=== PATIENT | male | born 1955 | race Caucasian/White ===

== ENCOUNTER 2020-08-28 10:06 | Observation (INO) | payer MEDICARE, SELFPAY ==
[2020-08-28] VITALS (52 sets, daily range): BP systolic 105–137; BP diastolic 67–110; PULSE 63–95; RESP 9–20; TEMP 36.3–37.1; O2SAT 94–100; BMI 25.0
--- NOTE | 2020-08-28 | ECHO_ITS ---
Patient Info Name: Josh Bucio Age: 65 years : 1955 Gender: Male Ht: 72 in Wt: 194 lbs BSA: 2.13 m2 HR: 63 bpm BP: 111 / 78 mmHg Technical Quality: Fair Exam Date: 08/28/2020 3:53 PM Exam Location: [facility] Exam Room: ER Patient Status: Outpatient Admit Date: 08/28/2020 Staff Ordering Physician: Ja Alonzo MD Reverberatory Furnace Operator: Viktoriya Wilson RDCS Attending Provider: Sara Aldana MD Exam Type: CA echo doppler color flow Study Info Indications - CHEST PAIN CAD S/P CABG Complete two-dimensional, color flow and Doppler transthoracic echocardiogram is performed. Summary 1. Complete two-dimensional, color flow and Doppler transthoracic echocardiogram is performed. 2. Left ventricular systolic function is normal, estimated at 60-65%. 3. There is mildly increased left ventricular wall thickness. 4. There is mild aortic valve regurgitation. Left Ventricle Left ventricular chamber dimension is normal. Left ventricular systolic function is normal, estimated at 60-65%. There is mildly increased left ventricular wall thickness. Left ventricular septal wall motion is abnormal with septal motion related to a post-operative state. The left ventricular diastolic function is normal. Right Ventricle Right ventricular chamber dimension is normal. Right ventricular systolic function is normal. Left Atria Left atrial chamber dimension is normal. Right Atria Right atrial chamber dimension is normal. Aortic Valve The aortic valve is trileaflet. There is no aortic valve sclerosis. There is no aortic valve stenosis. There is mild aortic valve regurgitation. Pulmonic Valve The pulmonic valve is normal. There is no pulmonic valve stenosis. There is no pulmonic regurgitation. Mitral Valve The mitral valve has normal leaflets. There is no mitral valve stenosis. There is trace mitral valve regurgitation. Tricuspid Valve The tricuspid valve leaflets are normal. There is no significant tricuspid valve stenosis. There is trace tricuspid valve regurgitation. No pulmonary hypertension, estimated pulmonary arterial systolic pressure is 28 mmHg. Pericardium/Pleural The pericardium appears normal. There is no pericardial effusion. Inferior Vena Cava Normal inferior vena cava with >50% collapse upon inspiration consistent with normal right atrial pressure, 10 mmHg. Aorta The aortic root size at the sinus of Valsalva is normal. The prox ascending aorta size is normal. Left Ventricular Outflow Tract Name Value Normal LVOT 2D LVOT Diameter 2.0 cm LVOT Doppler LVOT Peak Gradient 4 mmHg LVOT Mean Gradient 2 mmHg LVOT VTI 20 cm LVOT VTI/AV VTI Ratio 1.0 LVOT Stroke Volume 64 ml LVOT CO 12.8 l/min LVOT CI 6.0 l/min/m2 Pulmonic Valve Name Value
--- NOTE | ~2020-08-28 | US_ITS ---
EXAMINATION: US right upper quadrant DATE: 08/29/2020 08:33 INDICATION: Abdominal pain. TECHNIQUE: Multiple grayscale and Doppler ultrasound images of the abdomen were obtained. COMPARISON: CT abdomen and pelvis 06/06/2017 FINDINGS: The visualized portions of the head and body of the pancreas are normal. There is diffuse h epatic steatosis. There is normal flow in main portal vein. The gallbladder is normal in size and con tains a gallstone. No gallbladder wall thickening or sonographic Medrano sign. The common duct is norm al and measures 3 mm. IMPRESSION: 1. Cholelithiasis. No evidence of acute cholecystitis. 2. Diffuse hepatic steatosis. Reviewed, dictated and finalized at location B. BOARD INSERTER
--- NOTE | ~2020-08-28 | CT_ITS ---
EXAMINATION: CT cervical spine wo con DATE: 08/29/2020 08:44 INDICATION: Neck pain. TECHNIQUE: Computed tomography (CT) of the cervical spine was performed without intravenous contrast. Automated exposure control and iterative reconstruction technique were employed. The dose-length pro duct was 391.47 mGy-cm. COMPARISON: None FINDINGS: There is 2 mm anterolisthesis of C4 on C5. Vertebral body heights are normal. There is mode rately decreased disc height at C3-C4, mildly decreased disc height at C4-C5, and moderately decrease d disc height at C5-C6 and C6-C7. The following disc levels are specifically discussed: C2-C3: There is mild left uncovertebral joint osteoarthritis. There is mild bilateral facet joint ost eoarthritis. There is mild left neural foraminal stenosis. There is no central canal stenosis. C3-C4: There is severe bilateral uncovertebral joint osteoarthritis. There is mild bilateral facet gretta int osteoarthritis. There is mild right and moderate left neural foraminal stenosis. There is mild ce ntral canal stenosis. C4-C5: There is no uncovertebral joint osteoarthritis. There is mild right and severe left facet join t osteoarthritis. There is mild left neural foraminal stenosis. There is no central canal stenosis. C5-C6: There is severe bilateral uncovertebral joint osteoarthritis. There is mild bilateral facet gretta int osteoarthritis. There is mild bilateral neural foraminal stenosis. There is mild central canal st enosis. C6-C7: There is moderate and moderate left uncovertebral joint osteoarthritis. There is severe right and moderate left facet joint osteoarthritis. There is mild left neural foraminal stenosis. There is mild central canal stenosis. C7-T1: There is no uncovertebral joint osteoarthritis. There is mild right and moderate left facet gretta int osteoarthritis. There is mild left neural foraminal stenosis. There is no central canal stenosis. IMPRESSION: 1. Moderate cervical spondylosis. Reviewed, dictated and finalized at location B. ODONTIST VICE PRESIDENT
--- NOTE | ~2020-08-28 | XR_ITS ---
EXAMINATION: XR chest 2V DATE: 08/28/2020 10:53 INDICATION: Chest pain. TECHNIQUE: Frontal and lateral views of the chest were obtained. COMPARISON: Chest 2 views 04/05/2016, CT abdomen and pelvis 06/06/2017 FINDINGS: There is mild atelectasis in the lower lung zones. No pleural effusion or pneumothorax. The heart size is normal. Median sternotomy wires and mediastinal surgical clips are seen, likely from p rior coronary artery bypass grafting. IMPRESSION: 1. Mild atelectasis in the lower lung zones. Reviewed, dictated and finalized at location B. FIXTURE ASSEMBLER
--- NOTE | 2020-08-28 10:12 | ECG_ITS ---
Measurements Intervals [place] Rate: 65 P: 48 ND: 141 QRS: 14 QRSD: 96 T: 28 QT: 397 QTc: 415 Interpretive Statements SINUS RHYTHM NORMAL ECG Electronically Signed On 08-28-2020 13:43:38 [employer] GEN[employer] RESEARCHER by Jose Luis Neville D.O.
--- NOTE | 2020-08-28 10:22 | ED.CHESTPAIN ---
HPI - Chest Pain General Chief Complaint: Chest Pain Stated Complaint: CP Time Seen by Provider: 08/28/20 10:13 Source: patient Mode of arrival: ambulatory Limitations: no limitations History of Present Illness HPI narrative: Patient 65-year-old male complaining of chest pain, midsternal, pressure, 6 out of 10, radiating to his neck x2 weeks. Patient states that he seen his doctor for this chest pain and was told that everything checked out okay states that he is still having pain. Patient had CABG back in December. Related Data Home Medications Medication Instructions Recorded Confirmed amlodipine 2.5 mg PO 08/28/20 aspirin [Adult Aspirin] 81 mg PO DAILY 08/28/20 atorvastatin 80 mg PO 08/28/20 clopidogrel 75 mg PO 08/28/20 furosemide 20 mg PO 08/28/20 metoprolol succinate 50 mg PO 08/28/20 potassium chloride 10 meq PO 08/28/20 Allergies Allergy/AdvReac Type Severity Reaction Status Date / Time No Known Allergies Allergy Verified 08/28/20 10:21 Review of Systems Review of Systems: All systems reviewed & are unremarkable except as noted in HPI and below Constitutional: Constitutional: Denies body ache(s), Denies chills, Denies excessive sweating, Denies fatigue, Denies fever(s), Denies headache(s), Denies lethargy, Denies malaise, Denies weakness and Denies weight loss Eyes: Eyes: Denies blurry vision, Denies change in vision and Denies loss of vision ENT: Denies dizziness, Denies ear discharge, Denies headache(s), Denies lip swelling, Denies epistaxis, Denies nasal congestion, Denies neck pain, Denies throat swelling and Denies tongue swelling Cardiovascular: Cardiovascular: Denies diaphoresis, Denies rapid heart rate, Denies edema, Denies irregular heart rhythm, Denies lightheadedness, Denies palpitations, Denies dyspnea and Denies dyspnea on exertion Respiratory: Respiratory: Denies chest congestion, Denies cough, Denies hemoptysis, Denies dyspnea and Denies dyspnea on exertion Gastrointestinal: Gastrointestinal: Denies abdominal pain, Denies melena, Denies hematochezia, Denies diarrhea, Denies nausea, Denies vomiting and Denies hematemesis Musculoskeletal: Musculoskeletal: Denies abnormal gait, Denies deformity, Denies joint swelling, Denies limited range of motion, Denies neck pain and Denies numbness Neurologic: Denies Abnormal speech present, Denies abnormal gait, Denies confusion, Denies dizziness, Denies headache(s), Denies focal weakness, Denies loss of vision, Denies numbness, Denies Other visual disturbances, Denies Sensory deficit (Neuro) and Denies weakness Psychiatric: Psychiatric: Denies confusion, Denies depression, Denies auditory hallucinations, Denies homicidal ideation and Denies suicidal ideation Endocrine: Endocrine: Denies cold intolerance, Denies excessive sweating, Denies fatigue, Denies heat intolerance and Denies palpitations Hematologic/Lymphatic: Hematologic/Lymphatic: Denies easy bleeding and Denies easy bruising Allergic/Immunologic: Allergic/Immunologic: Denies lip swelling, Denies throat swelling and Denies tongue swelling PMFSH Social History Social History Gender identity (if verbalized by the patient): Male Exam Const: General: cooperative, healthy appearing, comfortable, no acute distress, well developed, alert and awake; No confusion Orientation/consciousness: oriented to person, oriented to place, oriented to time, patient oriented x3 and No confusion Limitations: no limitations HENMT: Head: normal to inspection, normocephalic and atraumatic Ears: hearing grossly normal bilaterally, TM normal on the right and TM normal on the left General nose exam: Normal external nose present, Normal nares present and No nasal discharge present Face and sinus: normal facial exam Mouth: Yes Normal oral and palatal mucosa present, Yes lip normal, Yes tongue normal and Yes oropharynx normal Throat: posterior oropharynx normal, tonsils normal and uvula midline Eyes: General: jeremy
[2020-08-28] MEDS: NITROGLYCERIN OINTMENT 1 INCH DOSE TRANSDERM (10:37)
[2020-08-28] MEDS: ASPIRIN 81 MG CHEWABLE TABLET 324 MG PO (10:38)
[2020-08-28 11:08] LABS: Basophils Percent Auto 0.4 % (0.2-1.2); Eosinophils Absolute Auto 0.3 K/mm3 (0-0.3); Eosinophils Percent Auto 3.6 % (0-4.4); Hematocrit 42.8 % (42.0-52.0); Hemoglobin 15.2 g/dL (14.0-18.0); Immature Granulocyte Absolute 0.02 K/mm3 (0.00-0.031); Immature Granulocyte Percent A 0.3 % (0-0.5); Lymphocytes Absolute Auto 2.43 K/mm3 (0.9-3.2); Lymphocytes Percent Auto 31.1 % (18.3-44.2); Mean Corpuscular HGB Conc 35.5 g/dl (32-36); Mean Corpuscular Hemoglobin 31.3 pg (26-34); Mean Corpuscular Volume 88.1 fl (80-100); Mean Platelet Volume 9.1 fl (7.4-10.4); Monocytes Absolute Auto 0.8 K/mm3 (0.1-0.6); Monocytes Percent Auto 9.7 % (2.6-8.5); Neutrophils Absolute Auto 4.3 K/mm3 (1.3-6.7); Neutrophils Percent Auto 54.9 % (45.5-73.1); Platelet Count Result 283 k/mm3 (150-375); Red Blood Count 4.86 M/mm3 (4.6-6.20); Red Cell Distribution Width 13.4 % (11.5-14.5); White Blood Count 7.8 K/mm3 (4.5-10.0)
[2020-08-28 11:17] LABS: Prothrombin Time 14.1 Seconds (11.1-14.7)
[2020-08-28 11:18] LABS: Partial Thromboplastin Time 35.1 SECONDS (22.3-36.8)
[2020-08-28 11:20] LABS: Anion Gap 11 mmol/L (8-16); Blood Urea Nitrogen 16 mg/dL (9-20); Calcium 9.2 mg/dL (8.4-10.2); Carbon Dioxide 23 mmol/L (22-30); Chloride 107 mmol/L (98-107); Estimated CRCL calculation 70 ml/min; Estimated Glomerular Filt Rate > 60; Glucose 113 mg/dL (75-110); Potassium 3.5 mmol/L (3.4-5.0); Sodium 141 mmol/L (137-145)
[2020-08-28 11:31] LABS: Troponin I < 0.012 ng/mL (0.000-0.034)
[2020-08-28 14:01] LABS: Troponin I < 0.012 ng/mL (0.000-0.034)
[2020-08-28 15:20] LABS: Cholesterol 91 mg/dL (0-200); HDL Direct 33 mg/dL; Triglycerides 105 mg/dL (<150)
[2020-08-28 15:31] LABS: LDL Cholesterol Direct 35 mg/dL
--- NOTE | 2020-08-28 16:42 | ADMGEN ---
This patient, Josh Bucio, was admitted to IMU Room 205-02 at 1635 on 08/28/2020. Patient/family oriented to hospital policies and general routines including ID bracelet, bed and alarms, visiting hours, pain management, procedures, bathroom and other care routines, personal items, smoking policy, room service/diet, and visiting hours. Information on how to activate the Rapid Response Team has been discussed. Patient/Family are encouraged to report perceived risks to care and to ask questions if they do not understand what they are told or what they should do.
--- NOTE | 2020-08-28 16:55 | NBADM ---
This patient Josh Bucio was born on [birth year] at 15:04. Apgars / .
--- NOTE | 2020-08-28 16:55 | PC.NURSE ---
This patient, Josh Bucio, was admitted to IMU Room 205-02. Patient/family oriented to hospital policies and general routines including ID bracelet, bed and alarms, visiting hours, pain management, procedures, bathroom and other care routines, personal items, smoking policy, room service/diet, and visiting hours. Information on how to activate the Rapid Response Team has been discussed. Patient/Family are encouraged to report perceived risks to care and to ask questions if they do not understand what they are told or what they should do.
[2020-08-28 17:44] LABS: Troponin I < 0.012 ng/mL (0.000-0.034)
--- NOTE | 2020-08-28 20:02 | PM.IMHP ---
H&P: HPI History of Present Illness Date/Time: 08/28/20 20:02 Chief complaint: Chest Pain Narrative: Josh Bucio is a 65 year old male who has a history of coronary artery disease with 5 vessel CABG. The patient was having some chest pain back in December in which grandson the hospital patient was given a choice of having surgery there are being sent to [facility]. The patient went to [facility] and received to 5 vessel CABG in December. The patient is complaining of some tenderness at his surgical site. The patient also stated that he is complaining of right neck pain just around the occipital area on the base of skull. The patient stated that he has some right teeth and he went to the dentist with complaints of this jaw and neck/ pain and they prescribed him some antibiotics sounds like amoxicillin. That did not relieve the discomfort. The patient stated he just took his routine medications and nothing else. The patient tells me that he does not have any maintenance mechanic 2nd shift. The thoracic surgeon thumb that he did now after return. He recovered well from his open heart surgery but does not have a maintenance mechanic 2nd shift. Today the patient came into the emergency room complaining of some chest pain that radiated to his neck. He does have a history of having gallstones and he states that he probably needs to have his gallbladder removed soon. Patient's troponins have been negative so far. His white count is normal and when I looked in his mouth he has no signs and symptoms of infection in his mouth. Patient's troponins are negative and it is very doubtful that the patient is having acute coronary syndrome. The patient had a 5 vessel CABG back in December. He states that he continues with his Plavix and aspirin as prescribed. Sinus rhythm. Cardiology was consulted. The patient was given nitro and aspirin in the emergency room. The patient is admitted to IMU for observation due to service 08/28/2020 Review of Systems Review of Systems: All systems reviewed & are unremarkable except as noted in HPI and below Constitutional: Constitutional: Reports as per HPI and Reports no additional constitutional complaints Eyes: Eyes: Reports as per HPI and Reports no additional eye complaints ENT: Reports system reviewed and no additional complaints, except as documented and Reports Normal hearing present Cardiovascular: Cardiovascular: Reports no additional cardiovascular complaints Respiratory: Respiratory: Reports no additional respiratory complaints and Reports no additional respiratory complaints Gastrointestinal: Gastrointestinal: Reports as per HPI and Reports no additional gastrointestinal complaints Musculoskeletal: Musculoskeletal: Reports no additional musculoskeletal complaints Integumentary/Breasts: Skin/Breast: Reports system reviewed and no additional complaints, except as docu and Reports as per HPI Neurologic: Reports system reviewed and no additional complaints, except as documented, Reports as per HPI and Reports Normal hearing present Psychiatric: Psychiatric: Reports no additional psychiatric complaints and Reports as per HPI Endocrine: Endocrine: Reports no additional endocrine complaints Hematologic/Lymphatic: Hematologic/Lymphatic: Reports no additional hematologic/lymphatic complaints Allergic/Immunologic: Allergic/Immunologic: Reports no additional allergic/immunologic complaints [facility] Past Medical History Medical History (Updated 08/28/20 @ 20:12 by Kenia Rhodes NP) Hyperlipidemia Hypertension Nephrolithiasis With lithotripsy Surgical History Surgical History (Updated 08/28/20 @ 20:12 by Kenia Rhodes NP) S/P CABG x 5 Family History Family History (Updated 08/28/20 @ 20:13 by Kenia Rhodes NP) Mother Heart disease Aspiration pneumonia Father Heart disease Social History Social History (Updated 08/28/20 @ 20:14 by Kenia Rhodes NP) Social History: The patient lives with his and has 4 children. His
[2020-08-28 20:31] LABS: Glucose Point of Care 164 (65-105)
--- NOTE | 2020-08-28 21:50 | PC.NURSE ---
This patient, Josh Bucio, was transferred to [ ] on 08/28/20 at 2150. Personal belongings sent with patient. Report given to [ ]. Appropriate documentation sent with patient. Gave report to Asael VILLAREAL. Moved Approx [id number]
[2020-08-29] VITALS: PULSE 78
[2020-08-29 04:00] VITALS: BP 101/59; PULSE 73; PULSE 76; RESP 18; TEMP 36.7; O2SAT 97
[2020-08-29 06:41] LABS: Basophils Percent Auto 0.2 % (0.2-1.2); Eosinophils Absolute Auto 0.2 K/mm3 (0-0.3); Eosinophils Percent Auto 2.8 % (0-4.4); Hematocrit 41.8 % (42.0-52.0); Immature Granulocyte Absolute 0.03 K/mm3 (0.00-0.031); Immature Granulocyte Percent A 0.4 % (0-0.5); Lymphocytes Absolute Auto 2.64 K/mm3 (0.9-3.2); Lymphocytes Percent Auto 31.8 % (18.3-44.2); Mean Corpuscular HGB Conc 33.5 g/dl (32-36); Mean Corpuscular Hemoglobin 30.2 pg (26-34); Mean Corpuscular Volume 90.1 fl (80-100); Mean Platelet Volume 9.3 fl (7.4-10.4); Monocytes Absolute Auto 0.8 K/mm3 (0.1-0.6); Monocytes Percent Auto 10.1 % (2.6-8.5); Neutrophils Absolute Auto 4.5 K/mm3 (1.3-6.7); Neutrophils Percent Auto 54.7 % (45.5-73.1); Platelet Count Result 266 k/mm3 (150-375); Red Blood Count 4.64 M/mm3 (4.6-6.20); Red Cell Distribution Width 13.5 % (11.5-14.5); White Blood Count 8.3 K/mm3 (4.5-10.0)
[2020-08-29 07:52] LABS: Alanine Aminotransferase 20 U/L (4-50); Albumin Level 3.5 g/dL (3.5-5.1); Alkaline Phosphatase 77 U/L (38-126); Anion Gap 7 mmol/L (8-16); Aspartate Amino Transferase 22 U/L (17-59); Bilirubin,Total 1.2 mg/dL (0.2-1.3); Blood Urea Nitrogen 18 mg/dL (9-20); CRP 0.8 mg/dL (<1.0); Calcium 8.6 mg/dL (8.4-10.2); Carbon Dioxide 27 mmol/L (22-30); Chloride 106 mmol/L (98-107); Estimated CRCL calculation 59 ml/min; Estimated Glomerular Filt Rate 60; Glucose 110 mg/dL (75-110); Magnesium 2.4 mg/dL (1.6-2.3); Potassium 3.8 mmol/L (3.4-5.0); Sodium 140 mmol/L (137-145)
[2020-08-29 08:00] VITALS: PULSE 73
[2020-08-29 08:58] VITALS: PULSE 78
[2020-08-29] MEDS: ATORVASTATIN 40 MG TABLET 80 MG PO (08:58)
[2020-08-29] MEDS: amLODIPine BESYLATE 2.5 MG TABLET PO (08:58)
[2020-08-29] MEDS: CLOPIDOGREL BISULFATE 75 MG TABLET PO (08:58)
[2020-08-29] MEDS: ASPIRIN 81 MG CHEWABLE TABLET PO (08:58)
[2020-08-29] MEDS: METOPROLOL SUCCINATE EXT REL 50 MG TABCR PO (08:58)
[2020-08-29] MEDS: FUROSEMIDE 20 MG TABLET PO (08:58)
[2020-08-29] MEDS: POTASSIUM CHLORIDE 10 MEQ TABLET.ER PO (08:59)
--- NOTE | 2020-08-29 10:35 | PM.CNCAR ---
Assessment and Plan Assessment and plan (1) Chest pain: Qualifiers: Chest pain type: unspecified Qualified Code(s): R07.9 - Chest pain, unspecified Code(s): R07.9 - Chest pain, unspecified Status: Acute Assessment and Plan: 45 y/o with h/o HTN, CAD s/p CABG X5 in February of 2020 who presents with neck pain/spasm He has residual incisional chest pain that has been gradually getting better since surgery EKG and trop are normal No need for any further inpatient cardiac work up He has never followed up with cardiology since his surgery in February. Will arrange for follow up with Dr Alonzo in [place] office (2) CAD (coronary artery disease): Code(s): I25.10 - Atherosclerotic heart disease of [place] coronary artery without angina pectoris Status: Acute Assessment and Plan: Stable Continue ASA Not sure why on Plavix. Need records from [facility]. (3) Hypertension: Code(s): I10 - Essential (primary) hypertension Status: Chronic Assessment and Plan: well controlled (4) Hyperlipidemia: Code(s): E78.5 - Hyperlipidemia, unspecified Status: Chronic Assessment and Plan: LDL 35. History of Present Illness History of Present Illness Consult date/time: 08/29/20 10:35 65 y/o male with h/o HTN, CAD who presented with neck pain He was admitted in February of this year to local hospital with chest pain and was found to have 3 vessel disease for which he was transferred to [facility] and underwent CABG X5. Since then he recovered well except for residual incisional pain. He never followed up with cardiology since surgery but has been following with his PCP and has been taking his meds. He presented yesterday with spams in his neck.Given his cardiac history he was admitted for monitoring. He denies any change in incisional chest pain. It is sharp and hurts with palpation. He denies dyspnea, nausea, fever/chills, dizziness or syncope. He has teeth issues and scheduled for extraction in 2 weeks. His EKG shows normal sinus rhythm. His troponin in negative X3. He is chest pain free now. He continues to have on and off spasm of the back of his neck He quit smoking 40+ years ago Reason For Visit: Chest Pain Review of Systems Review of Systems: All systems reviewed & are unremarkable except as noted in HPI and below Constitutional: Constitutional: Denies fatigue and Denies headache(s) Eyes: Eyes: Denies blurry vision ENT: Reports Normal hearing present and Denies headache(s) Cardiovascular: Cardiovascular: Denies chest pain, Denies diaphoresis, Denies pedal edema, Denies leg edema, Denies lightheadedness, Denies palpitations and Denies dyspnea Respiratory: Respiratory: Denies cough and Denies dyspnea Gastrointestinal: Gastrointestinal: Denies abdominal pain Musculoskeletal: Musculoskeletal: Denies back pain Neurologic: Reports Normal hearing present and Denies headache(s) Psychiatric: Psychiatric: Denies anxiety Endocrine: Endocrine: Denies fatigue and Denies palpitations [facility] Past Medical History Medical History (Updated 08/28/20 @ 20:12 by Kenia Rhodes NP) Hyperlipidemia Hypertension Nephrolithiasis With lithotripsy Surgical History Surgical History (Updated 08/28/20 @ 20:12 by Kenia Rhodes NP) S/P CABG x 5 Family History Family History (Updated 08/28/20 @ 20:13 by Kenia Rhodes NP) Mother Heart disease Aspiration pneumonia Father Heart disease Social History Social History (Updated 08/28/20 @ 20:14 by Kenia Rhodes NP) Social History: The patient lives with his and has 4 children. 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 The patient said that when he was the young man he was a hip be in use various drugs but not since then. He used to smoke cigarettes before he his . 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 No alcohol marijuana or illicit drugs at this time. But he did
[2020-08-29 12:00] VITALS: PULSE 75
--- NOTE | 2020-08-29 12:53 | PM.DS ---
DS: Admitting Diagnosis Admitting Diagnosis Admitting Diagnosis: Chest Pain DS: Discharge Diagnosis Discharge Diagnosis (1) Neck pain: Code(s): M54.2 - Cervicalgia Status: Acute Assessment and Plan: The patient has right sided neck pain. He thought this was from his poor dentition and has been prescribed abx without much benefit. CT cervical spine showing moderate cervical spondylosis. Pain better. Doubt this is anginal equivalent. Continue symptomatic care. (2) Chest pain: Qualifiers: Chest pain type: unspecified Qualified Code(s): R07.9 - Chest pain, unspecified Code(s): R07.9 - Chest pain, unspecified Status: Acute Assessment and Plan: Patient is tender along his incisional line. EKG was normal. Trop negative x3. Patient has a history of having gallstones with Right upper quad ultrasound showing diffuse hepatic steatosis and cholelithiasis but no evidence of acute cholecystitis. Echo pending. (3) CAD (coronary artery disease): Code(s): I25.10 - Atherosclerotic heart disease of [place] coronary artery without angina pectoris Status: Acute Assessment and Plan: As above. Seen by cardiology. We continued with his atorvastatin, aspirin, Plavix, metoprolol. Patient to follow up with Air Defence Officer as outpatient. (4) Cholelithiasis: Code(s): K80.20 - Calculus of gallbladder without cholecystitis without obstruction Status: Acute Assessment and Plan: As above. The patient has a known history of gallstones and noted by US here. Doubt they are causing symptoms (5) Hypertension: Code(s): I10 - Essential (primary) hypertension Status: Chronic Assessment and Plan: BP stable. We continued with patient's amlodipine and metoprolol. (6) Hyperlipidemia: Code(s): E78.5 - Hyperlipidemia, unspecified Status: Chronic Assessment and Plan: Stable. We continued with atorvastatin DS: Summary Hospital Course Reason for hospitalization: 65yo male her for chest pain. Please see H&P for details. Hospital Course: As above Status at Discharge Cognitive/behavioral status at discharge: PATIETN IS STABLE AT DISCHARGE Time Spent with Patient Time attestation: Total time spent providing and/or coordinating discharge services:34 minutes Time spent: Greater than 30 minutes Exam Narrative: Exam Narrative: AF 98.0 101/59 75 18 97% ra Gen - NARD Chest - CTA bilaterally, nml RR CV - RRR S1/S2; Tele showing no significnat dysrhythmias Abd - Soft, NT/ND, Positive BS Ext - No pedal edema Psych - Nml mood and affect Skin - Warm and dry DS: Data Data Completed and Pending Labs on day of discharge: Labs from last 24 hours 08/29/20 08/29/20 08/29/20 05:51 05:51 05:49 WBC 8.3 RBC 4.64 Hgb 14.0 Hct 41.8 L MCV 90.1 MCH 30.2 MCHC 33.5 RDW 13.5 Plt Count 266 MPV 9.3 Immature Gran % (Auto) 0.4 Neut % (Auto) 54.7 Lymph % (Auto) 31.8 [place] % (Auto) 10.1 H Eos % (Auto) 2.8 Baso % (Auto) 0.2 Lymph # (Auto) 2.64 [place] # (Auto) 0.8 H Eos # (Auto) 0.2 Baso # (Auto) 0.0 Abs Immat Gran (auto) 0.03 Absolute Neuts (auto) 4.5 Absolute Nucleated RBC 0.0 Nucleated RBC % 0.0 Sodium 140 Potassium 3.8 Chloride 106 Carbon Dioxide 27 Anion Gap 7 L BUN 18 Creatinine 1.20 Estim Creat Clear Calc 59 Estimated GFR 60 Glucose 110 POC Capillary Glucose Calcium 8.6 Magnesium 2.4 H Total Bilirubin 1.2 AST 22 ALT 20 Alkaline Phosphatase 77 Troponin I C-Reactive Protein 0.8 Total Protein 6.0 L Albumin 3.5 Triglycerides Cholesterol LDL Cholesterol Direct HDL Direct TSH (Reflex) 1.520 08/28/20 08/28/20 08/28/20 20:27 17:12 14:57 WBC RBC Hgb Hct MCV MCH MCHC RDW Plt Count MPV Immature Gran % (Auto)
--- NOTE | 2020-09-01 10:13 | PC.NURSE ---
Echo report shown to Dr. Irby.
--- NOTE | 2020-09-05 07:16 | PC.NURSE ---
ECHO report faxed to Dr. Vargas.
== END 2020-08-29 13:40 | disposition home or self-care (01) ==
LOC: ANHED 14:46 → ANHIMU 15:35 → ANH3MEDSUR 22:19
PROVIDERS: Nurse Practitioner; Specialist; Admitting Provider Family Medicine; Emergency Provider Emergency Medicine; PCP Internal Medicine; Visit Provider Internal Medicine
DX: R07.9 Chest pain, unspecified (principal); K80.20 Calculus of gallbladder without cholecystitis without obstruction; M47.812 Spondylosis without myelopathy or radiculopathy, cervical region; K76.0 Fatty (change of) liver, not elsewhere classified; I25.10 Atherosclerotic heart disease of native coronary artery without angina pectoris; I10 Essential (primary) hypertension; E78.5 Hyperlipidemia, unspecified; Z95.1 Presence of aortocoronary bypass graft; Z23 Encounter for immunization; Z79.02 Long term (current) use of antithrombotics/antiplatelets; Z79.82 Long term (current) use of aspirin; Z87.891 Personal history of nicotine dependence
CPT/HCPCS: 36415; 71046; 72125; 76705; 80048; 80053; 80061; 83735; 84443; 84484; 85025; 85610; 85730; 86140; 90471; 90653; 93005; 93306; 99285; A9270; G0008; G0378

== ENCOUNTER 2021-08-21 01:12 | Observation (INO) | payer MEDICARE, SELFPAY ==
[2021-08-21] VITALS (18 sets, daily range): BP systolic 129–163; BP diastolic 51–89; PULSE 67–109; RESP 12–22; TEMP 36.2–37.1; O2SAT 95–99; BMI 25.2
--- NOTE | ~2021-08-21 | XR_ITS ---
EXAMINATION: XR chest 2V DATE: 08/21/2021 01:52 INDICATION: Sternal chest pain TECHNIQUE: PA and lateral views of the chest were obtained. COMPARISON: Chest radiograph dated 08/28/2020 FINDINGS: Tonic eventration along the right hemidiaphragm. Persistent mild linear atelectasis/scarring in the b ilateral lower lung zones. No new airspace opacities, pulmonary edema, pleural effusion or pneumothor ax. The cardiomediastinal silhouette is normal. Median sternotomy wires and mediastinal surgical clip s are seen, likely from prior coronary artery bypass grafting. IMPRESSION: 1. Unchanged mild atelectasis/scarring at the bilateral lower lung zones. Reviewed, dictated and finalized at location A.
--- NOTE | ~2021-08-21 | NM_ITS ---
EXAMINATION: NM penelope stress w perfusion DATE: 08/22/2021 10:53 INDICATION: Chest pain TECHNIQUE: Rest images were obtained following intravenous administration of 9.4 mCi Tc99m tetrofosmi n (Myoview). The patient was infused intravenously with Lexiscan (Regadenoson). Then, 30.5 mCi Tc99m tetrofosmin (Myoview) was administered intravenously, and stress images were obtained in supine posit ion. Additional prominent post stress images were obtained. Data was reconstructed into short axis an d horizontal and vertical long axis SPECT images. Gated SPECT images were also obtained. COMPARISON: None. FINDINGS: Likely diaphragmatic attenuation artifact along the inferior wall on the rest and more prom inently on the supine post stress images which largely reverses with prone imaging. There is however a persistent small moderate severity perfusion defect on the prone post stress images at the inferoap ical segment consistent with ischemia. No nonreversible infarct. There is normal left ventricular ch dylan size, wall motion and ejection fraction. Left ventricular ejection fraction measures 65%. IMPRESSION: 1. Small region of moderate severity ischemia in the inferoapical segment. 2. Left ventricular ejection fraction measuring 65%. Reviewed, dictated and finalized at location A.
--- NOTE | 2021-08-21 01:30 | ECG_ITS ---
Measurements Intervals [place] Rate: 71 P: 21 OR: 136 QRS: -4 QRSD: 96 T: 32 QT: 386 QTc: 421 Interpretive Statements SINUS RHYTHM NONSPECIFIC T-WAVE ABNORMALITY- INFERIOR LEADS BASELINE ARTIFACT- II, III, AVF, V4-V6 BORDERLINE ECG Electronically Signed On 08-21-2021 6:17:37 CDT by Jose Luis Neville D.O.
[2021-08-21] MEDS: ASPIRIN 81 MG CHEWABLE TABLET 324 MG PO (01:34)
[2021-08-21 01:40] LABS: Basophils Percent Auto 0.4 % (0.2-1.2); Eosinophils Absolute Auto 0.3 K/mm3 (0-0.3); Eosinophils Percent Auto 2.8 % (0-4.4); Hematocrit 44.3 % (42.0-52.0); Hemoglobin 15.5 g/dL (14.0-18.0); Immature Granulocyte Absolute 0.05 K/mm3 (0.00-0.031); Immature Granulocyte Percent A 0.5 % (0-0.5); Lymphocytes Absolute Auto 3.43 K/mm3 (0.9-3.2); Lymphocytes Percent Auto 33.2 % (18.3-44.2); Mean Corpuscular Hemoglobin 32.6 pg (26-34); Mean Corpuscular Volume 93.1 fl (80-100); Mean Platelet Volume 8.9 fl (7.4-10.4); Monocytes Absolute Auto 1.1 K/mm3 (0.1-0.6); Monocytes Percent Auto 10.8 % (2.6-8.5); Neutrophils Absolute Auto 5.4 K/mm3 (1.3-6.7); Neutrophils Percent Auto 52.3 % (45.5-73.1); Platelet Count Result 266 k/mm3 (150-375); Red Blood Count 4.76 M/mm3 (4.6-6.20); Red Cell Distribution Width 13.2 % (11.5-14.5); White Blood Count 10.3 K/mm3 (4.5-10.0)
[2021-08-21 01:53] LABS: Anion Gap 9 mmol/L (8-16); Blood Urea Nitrogen 17 mg/dL (9-20); Calcium 9.9 mg/dL (8.4-10.2); Carbon Dioxide 26 mmol/L (22-30); Chloride 107 mmol/L (98-107); Estimated CRCL calculation 65 ml/min; Estimated Glomerular Filt Rate > 60; Glucose 158 mg/dL (65-110); Potassium 3.9 mmol/L (3.4-5.0); Sodium 142 mmol/L (137-145)
--- NOTE | 2021-08-21 02:00 | ED.CHESTPAIN ---
HPI - Chest Pain General Chief Complaint: Chest Pain Stated Complaint: Chest pain Time Seen by Provider: 08/21/21 01:29 Source: patient and family Mode of arrival: ambulatory Limitations: no limitations History of Present Illness HPI narrative: 66-year-old male with a past medical history of CAD status post CABG 5 vessel, hypertension, takes Plavix and aspirin daily was woken up from sleep with left anterior chest pain. Pain located left anterior chest nonradiating described as a heaviness. Pain is currently 6 out of 10. No shortness of breath, no fever, no nausea, no vomiting, no leg swelling, no new medications. Last had chest pain about a year ago. Has not seen his securities broker since he was last here in the hospital. Patient does not have a history of abdomen does not take nitro for chest pain Related Data Home Medications Medication Instructions Recorded Confirmed amlodipine 2.5 mg PO DAILY 08/28/20 08/21/21 aspirin 81 mg PO DAILY 08/28/20 08/21/21 atorvastatin 80 mg PO DAILY 08/28/20 08/21/21 clopidogrel 75 mg PO DAILY 08/28/20 08/21/21 furosemide 20 mg PO DAILY 08/28/20 08/21/21 metoprolol succinate 50 mg PO DAILY 08/28/20 08/21/21 potassium chloride 10 meq PO DAILY 08/28/20 08/21/21 Allergies Allergy/AdvReac Type Severity Reaction Status Date / Time No Known Allergies Allergy Verified 08/21/21 01:35 Review of Systems Review of Systems: CONSTITUTIONAL: no fever, no weight loss, no confusion EYES: no vision changes, no eye pain ENT: no rhinorrhea, no sore throat, no difficulty swallowing CARDIOVASCULAR: positive for chest pain, no leg edema, no palpitations RESPIRATORY: no cough, no shortness of breath, no hemoptysis GASTROINTESTINAL: no abdominal pain, no nausea, no vomiting, no diarrhea GENITOURINARY: no flank pain, no dysuria, no hematuria SKIN: no rash, no jaundice MUSCULOSKELETAL: no back pain, no trauma. NEUROLOGIC: No headache, no dizziness, no focal weakness PSYCHIATRIC: No hallucinations, no suicidal ideation [facility] Past Medical History Medical History CAD (coronary artery disease) Hyperlipidemia Hypertension Nephrolithiasis With lithotripsy Surgical History Surgical History S/P CABG x 5 Family History Family History Mother Heart disease Aspiration pneumonia Father Heart disease Social History Social History Social History: The patient lives with his and has 4 children. 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 The patient said that when he was the young man he was a hip be in use various drugs but not since then. He used to smoke cigarettes before he his . 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 No alcohol marijuana or illicit drugs at this time. But he did experiment with drugs as a young man. He desires to be a full code. Smoking status: Former smoker Alcohol intake: never Substance use: never Substance use type: does not use Gender identity (if verbalized by the patient): Male Spiritual care concerns: No Exam Narrative: General: alert, afebrile, answering all questions appropriately Head: normocephalic, atraumatic Eyes: EOMI bilaterally, anicteric, no injection ENT: moist mucous membranes, oropharynx patent, no rhinorrhea Neck: supple, trachea midline, no JVD Chest: equal chest rise bilaterally, no chest wall trauma noted Lungs: decreased breath sounds B bases, respirations unlabored CV: regular rate, no MUNIRA B, calf size equal bilaterally Abd: soft, non-distended, non-tender, no rebound, no gaurding, negative Medrano's EXT: no deformity noted, moving all extremities equally Skin: warm, dry, no pallor Neuro: alert, oriented x 3; CN 2-12 grossly intact, no dysarthria Psych: affect appropriate, though content norm
[2021-08-21 02:05] LABS: Troponin I < 0.012 ng/mL (0.000-0.034)
[2021-08-21 02:09] LABS: Prothrombin Time 13.3 Seconds (11.1-14.7)
[2021-08-21 02:10] LABS: Partial Thromboplastin Time 33.9 SECONDS (22.3-36.8)
--- NOTE | 2021-08-21 02:22 | PC.NURSE ---
Called lab and spoke to Magdalena to add on BNP, MG
[2021-08-21] MEDS: NITROGLYCERIN OINTMENT 1 INCH DOSE 0.5 INCH TOPICAL (02:34)
--- NOTE | 2021-08-21 02:38 | PM.IMHP ---
H&P: HPI History of Present Illness Date/Time: 08/21/21 02:38 Chief Complaint: Chest pain Narrative: This is a 66-year-old male with past medical history significant for hypertension, dyslipidemia, coronary artery disease status post bypass 5 vessel disease. Patient presented to the emergency room after he woke up with chest pain localized to the retrosternal area nonradiating has been on and off for the last 3 hours or so he denies any diaphoresis, lightheadedness, dizziness, palpitations ,syncope or near-syncope ,no leg swelling, no shortness of breath ,no cough, no sputum production, no nausea ,no vomiting, no abdominal pain ,no fevers ,no rigors ,no chills. He did confess to eating poisonous muchrooms 2 weeks ago while at a barbecue and thought that this might be related to this. Preliminary workup has been essentially nonrevealing. Review of Systems Review of Systems: Chest pain Constitutional: Constitutional: Denies chills, Denies fatigue, Denies fever(s), Denies lethargy, Denies malaise, Denies night sweats and Denies weakness Eyes: Eyes: Denies change in vision ENT: Denies dysphagia, Denies vertigo, Denies dizziness, Denies nasal congestion, Denies nasal discharge, Denies nasal obstruction and Denies odynophagia Cardiovascular: Cardiovascular: Reports chest pain, Denies irregular heart rhythm, Denies claudication, Denies leg edema, Denies lightheadedness, Denies radiating jaw, neck or arm pain, Denies palpitations, Denies dyspnea, Denies dyspnea on exertion and Denies paroxysmal nocturnal dyspnea Respiratory: Respiratory: Denies cough and Denies dyspnea Gastrointestinal: Gastrointestinal: Denies abdominal pain, Denies dyspepsia, Denies heartburn, Denies diarrhea, Denies nausea and Denies vomiting Genitourinary: Genitourinary: Reports no additional male genitourinary complaints and Reports as per HPI Musculoskeletal: Musculoskeletal: Denies arthralgias, Denies joint swelling, Denies muscle cramps and Denies muscle weakness Integumentary/Breasts: Skin/Breast: Denies rash Neurologic: Denies vertigo, Denies dizziness, Denies syncope, Denies focal weakness and Denies Sensory deficit (Neuro) Psychiatric: Psychiatric: Reports no additional psychiatric complaints and Reports as per HPI Endocrine: Endocrine: Reports no additional endocrine complaints Hematologic/Lymphatic: Hematologic/Lymphatic: Reports no additional hematologic/lymphatic complaints Allergic/Immunologic: Allergic/Immunologic: Reports no additional allergic/immunologic complaints and Reports as per HPI [facility] Past Medical History Medical History (Updated 08/21/21 @ 02:31 by Savannah Bear MD) Hyperlipidemia Hypertension Nephrolithiasis With lithotripsy Surgical History Surgical History (Updated 08/21/21 @ 04:31 by Trish Cuello MD) S/P CABG x 5 Family History Family History (Updated 08/28/20 @ 20:13 by Kenia Rhodes NP) Mother Heart disease Aspiration pneumonia Father Heart disease Social History Social History (Updated 08/28/20 @ 20:14 by Kenia Rhodes NP) Social History: The patient lives with his and has 4 children. 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 The patient said that when he was the young man he was a hip be in use various drugs but not since then. He used to smoke cigarettes before he his . 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 No alcohol marijuana or illicit drugs at this time. But he did experiment with drugs as a young man. He desires to be a full code. Smoking status: Former smoker Alcohol intake: never Substance use: never Substance use type: does not use Gender identity (if verbalized by the patient): Male Spiritual care concerns: No Meds Home Medications and Allergies Home Medications Medication Instructions Recorded Confirmed Type amlodipine 2.5 mg PO DAILY 08/28/20 08/28/20 History aspirin 81 mg PO DAILY 08/28/20 08/28/20 History at
[2021-08-21 02:40] LABS: Magnesium 2.3 mg/dL (1.6-2.3)
[2021-08-21 02:46] LABS: NT Pro B Type Natriuretic Pept 97 pg/mL (5-100)
[2021-08-21 03:37] LABS: Add Urine Microscopic? YES; Appearance Urine Cloudy (Clear); Bilirubin Urine Negative (Negative); Blood Urine 1+ (Negative); Color Urine Yellow (Yellow); Glucose Urine UA 3+ mg/dL (Negative); Ketones Urine Negative (Negative); Leukocyte Esterase Ur Negative LEU/UL (Negative); Nitrate Urine Negative (Negative); Protein Urine Negative (Negative); Specific Grav Ur 1.016 (1.001-1.035); Urobilinogen Urine Negative mg/dL (<2.0); WBC Urine 0-3 /hpf
--- NOTE | 2021-08-21 04:18 | PC.NURSE ---
This patient, Josh Bucio, was admitted to IMU Room 209-01. Patient/family oriented to hospital policies and general routines including ID bracelet, bed and alarms, visiting hours, pain management, procedures, bathroom and other care routines, personal items, smoking policy, room service/diet, and visiting hours. Information on how to activate the Rapid Response Team has been discussed. Patient/Family are encouraged to report perceived risks to care and to ask questions if they do not understand what they are told or what they should do.
[2021-08-21 05:29] LABS: Troponin I < 0.012 ng/mL (0.000-0.034)
[2021-08-21 08:15] LABS: Troponin I < 0.012 ng/mL (0.000-0.034)
--- NOTE | 2021-08-21 09:50 | PM.IMPN ---
Progress Note: A&P Assessment and Plan (1) Chest pain: Qualifiers: Chest pain type: unspecified Qualified Code(s): R07.9 - Chest pain, unspecified Code(s): R07.9 - Chest pain, unspecified Status: Acute Assessment and Plan: Some typical and/or atypical symptoms. It chest pain with concurrent jaw pain. Preliminary workup is essentially nonrevealing EKG with no acute changes Troponins no detectable Serial troponin negative Will do stress test with Lexiscan in the morning Cardiology consultation for evaluation of his chest pain along with establishment and follow-up here (2) CAD (coronary artery disease): Qualifiers: Associated angina: unspecified whether angina present Coronary Disease-Associated Artery/Lesion type: bypass graft [place] vs. transplanted heart: [place] heart Qualified Code(s): I25.810 - Atherosclerosis of coronary artery bypass graft(s) without angina pectoris Code(s): I25.10 - Atherosclerotic heart disease of [place] coronary artery without angina pectoris Status: Acute Assessment and Plan: Continue Plavix Continue aspirin Continue atorvastatin Continue clopidogrel (3) S/P CABG x 5: Code(s): Z95.1 - Presence of aortocoronary bypass graft Status: Inactive Assessment and Plan: Continue to monitor (4) Hyperlipidemia: Code(s): E78.5 - Hyperlipidemia, unspecified Status: Chronic Assessment and Plan: On statin (5) Hypertension: Code(s): I10 - Essential (primary) hypertension Status: Chronic Assessment and Plan: Patient's blood pressure is normal high to high Not at goal on presentation to emergency room Follow-up in outpatient setting Restart home meds Continue to monitor Subjective Date/time seen: 08/21/21 09:50 Interval history: HPI:This is a 66-year-old male with past medical history significant for hypertension, dyslipidemia, coronary artery disease status post bypass 5 vessel disease. Patient presented to the emergency room after he woke up with chest pain localized to the retrosternal area nonradiating has been on and off for the last 3 hours or so he denies any diaphoresis, lightheadedness, dizziness, palpitations ,syncope or near-syncope ,no leg swelling, no shortness of breath ,no cough, no sputum production, no nausea ,no vomiting, no abdominal pain ,no fevers ,no rigors ,no chills. He did confess to eating poisonous muchrooms 2 weeks ago while at a barbecue and thought that this might be related to this. Preliminary workup has been essentially nonrevealing. Interval history: No overnight events. Denies any chest pain or shortness of breath fever chills. No abdominal pain nausea vomiting. He has not followed up with any shoe salesman since the bypass Review of Systems Review of Systems: All systems reviewed & are unremarkable except as noted in HPI and below (HPI) Exam Narrative: GENERAL: The patient is well developed, not in acute distress HEENT: Nonicteric sclerae, PERRLA, EOMI. Oropharynx clear. Moist mucous membranes. Conjunctivae appear well perfused. CHEST: Chest wall is nontender. HEART: Regular rate and rhythm without murmur, rubs, or gallops LUNGS: Clear to auscultation bilaterally. no respiratory distress ABDOMEN: Soft, positive bowel sounds, non-tender, no organomegaly. SKIN: No rash, no excessive bruising, petechiae, or purpura. NEUROLOGIC: Cranial nerves II-XII intact, alert and oriented x 3, no gross motor deficits EXTREMITIES: no edema, cyanosis or clubbing Extrem: General: normal exam except as noted and no edema Objective Data Vital Signs Vital Signs: Vital Signs - 24 hr 08/21/21 01:25 08/21/21 02:35 08/21/21 04:15 Temperature 98.1 F 98.1 F Pulse Rate 72 67 82 Respiratory Rate 12 17 20 Blood Pressure 158/83 H 137/85 143/87 H Pulse Oximetry 95 99 98 08/21/21 04:25 08/21/21 06:00 08/21/21 08:12 Temperature 98.7 F Pulse Rate 71 75 76 Re
--- NOTE | 2021-08-21 14:25 | PM.CNCAR ---
Assessment and Plan Assessment and plan (1) Chest pain: Qualifiers: Chest pain type: unspecified Qualified Code(s): R07.9 - Chest pain, unspecified Code(s): R07.9 - Chest pain, unspecified Status: Acute Assessment and Plan: Somewhat atypical chest pain improved nitroglycerin not exacerbated with activity yet similar in character but not in severity without related to symptoms prior to CABG. He has ruled out for myocardial infarction with negative enzymes serially. EKG reveals nonspecific changes but no new changes consistent with myocardial ischemia compared to his prior tracing. I do not have records available to corroborate details of his coronary angiogram, prior stress test and bypass surgery. These records have been requested and will be reviewed when available. NPO after midnight for Lexiscan nuclear stress test in a.m.. Recommendation to follow. Anticipate optimizing medical therapy depending upon severity of abnormalities compared to prior study. All questions answered to their satisfaction. Patient verbalized understanding and agreed with plan of care. Continue current medical therapy although I would expect will be able to discontinue clopidogrel if stress test is unremarkable patient remains relatively asymptomatic. -continue aspirin, atorvastatin, Toprol XL 50 mg daily as well as furosemide. Continue amlodipine for blood pressure control. May add long-acting nitrate therapy if stress test without significant or high risk ischemia. Continue telemetry overnight. (2) CAD (coronary artery disease): Qualifiers: Associated angina: unspecified whether angina present Coronary Disease-Associated Artery/Lesion type: bypass graft [place] vs. transplanted heart: [place] heart Qualified Code(s): I25.810 - Atherosclerosis of coronary artery bypass graft(s) without angina pectoris Code(s): I25.10 - Atherosclerotic heart disease of [place] coronary artery without angina pectoris Status: Acute Assessment and Plan: As above. Continue aggressive medical therapy. Recommendations to follow after ischemic evaluation is completed. Patient and his indicated they would like to establish cardiovascular care moving forward with me as an outpatient. We will help him set this up prior to discharge. (3) S/P CABG x 5: Code(s): Z95.1 - Presence of aortocoronary bypass graft Status: Acute Assessment and Plan: As reported, records pending. Will review when available as requested. (4) Hypertension: Code(s): I10 - Essential (primary) hypertension Status: Chronic Assessment and Plan: Remains elevated. Initiate home medical therapy. Recommendations to follow as appropriate. (5) Hyperlipidemia: Code(s): E78.5 - Hyperlipidemia, unspecified Status: Chronic Assessment and Plan: Continue atorvastatin 80 mg at bedtime. Goal LDL less than 70. Check lipid panel. History of Present Illness History of Present Illness Consult date/time: Date of service: 08/21/21 14:25 Cardiology consultation at the request of Dr. Winchester for our opinion regarding complaints of chest pain and h/o CAD s/p CABG. Requesting physician: Freeman Winchester MD Consult reason: chest pain Reason For Visit: Chest Pain, CAd Narrative: Patient is a very pleasant 66-year-old male with a past medical history significant for CAD status post 5 vessel bypass February 2020, hypertension, dyslipidemia who presented to the emergency department with complaints of chest achiness in the left to center location without radiation with waxing and waning intensity independent of activity. Patient's reports that last year he presented with severe central substernal chest pain and pressure, achiness and present to [place] where he underwent a stress test and not coronary angiogram with decision was made to transfer him to [facility] for bypass surgery. They contemplated in
[2021-08-21] MEDS: ASPIRIN 81 MG ENTERIC TABLET PO (14:30)
[2021-08-21] MEDS: amLODIPine BESYLATE 2.5 MG TABLET PO (14:31)
[2021-08-21] MEDS: METOPROLOL SUCCINATE EXT REL 50 MG TABCR PO (14:31)
[2021-08-21] MEDS: ATORVASTATIN 40 MG TABLET 80 MG PO (14:31)
[2021-08-21] MEDS: POTASSIUM CHLORIDE 10 MEQ TABLET.ER PO (14:31)
[2021-08-21] MEDS: CLOPIDOGREL BISULFATE 75 MG TABLET PO (14:32)
[2021-08-22] VITALS (13 sets, daily range): BP systolic 126–141; BP diastolic 66–94; PULSE 67–98; RESP 18–20; TEMP 36.4–36.7; O2SAT 95–99
--- NOTE | 2021-08-22 | EST_ITS ---
Patient Info Name: Josh Bucio Age: 66 years : 1955 Gender: Male Ht: 72 in Wt: 185 lbs BSA: 2.07 m2 HR: 101 bpm BP: 140 / 114 mmHg Heart Rhythm: Sinus Rhythm Exam Date: 08/22/2021 9:14 AM Exam Location: [facility] Stress Patient Status: Outpatient Admit Date: 08/21/2021 Staff Ordering Physician: Freeman Winchester MD Attending Provider: Trish Cuello MD Exercise Technologist: Velma Linn CT Exercise Physician: Wiliam Mayers MD Exam Type: CA stress penelope w NM Study Info Indications R07.9 - Chest pain, unspecified A regadenoson stress test was performed. Summary 1. Normal sinus rhythm. 2. Minor resting ST/T wave changes. 3. Clinically and electrocardiographically normal lexiscan stress test. 4. MPI to be reported by radiology. Protocol: Lexiscan Stress ECG Details Stage: REST Duration (min): 3 min : 17 sec HR (bpm): 78 SBP (mmHg): 140 DBP (mmHg): 114 Stage: STAGE 1 Duration (min): 1 min : 0 sec HR (bpm): 96 SBP (mmHg): 126 DBP (mmHg): 75 Stage: RECOVERY Duration (min): 1 min : 0 sec HR (bpm): 103 SBP (mmHg): 126 DBP (mmHg): 75 Stage: RECOVERY Duration (min): 2 min : 0 sec HR (bpm): 99 SBP (mmHg): 126 DBP (mmHg): 75 Stage: RECOVERY Duration (min): 2 min : 51 sec HR (bpm): 96 SBP (mmHg): 167 DBP (mmHg): 76 Rest HR: 78 bpm Peak HR: 103 bpm Rest Sys BP: 140 mmHg Peak Sys BP: 167 mmHg Max Pred HR: 152 bpm % Max Pred HR: 68 % Target HR: 129 bpm Max RPP: 17,201 bpm*mmHg BP Response: Normal response to lexiscan Termination Reason: Completed protocol Cardiac Symptoms: None Total Time: 1 min : 0 sec Rest Kong BP: 114 mmHg Peak Kong BP: 76 mmHg Total Dose: 0.4 mg Resting ECG Normal sinus rhythm. Minor resting ST/T wave changes. Stress ECG No abnormal ST/T wave changes with exercise. Report Signatures
[2021-08-22 04:31] LABS: Basophils Percent Auto 0.2 % (0.2-1.2); Eosinophils Absolute Auto 0.2 K/mm3 (0-0.3); Eosinophils Percent Auto 2.4 % (0-4.4); Hematocrit 40.8 % (42.0-52.0); Hemoglobin 13.9 g/dL (14.0-18.0); Immature Granulocyte Absolute 0.02 K/mm3 (0.00-0.031); Immature Granulocyte Percent A 0.2 % (0-0.5); Lymphocytes Absolute Auto 3.03 K/mm3 (0.9-3.2); Lymphocytes Percent Auto 36.3 % (18.3-44.2); Mean Corpuscular HGB Conc 34.1 g/dl (32-36); Mean Corpuscular Hemoglobin 31.9 pg (26-34); Mean Corpuscular Volume 93.6 fl (80-100); Mean Platelet Volume 8.8 fl (7.4-10.4); Monocytes Absolute Auto 0.9 K/mm3 (0.1-0.6); Monocytes Percent Auto 10.3 % (2.6-8.5); Neutrophils Absolute Auto 4.2 K/mm3 (1.3-6.7); Neutrophils Percent Auto 50.6 % (45.5-73.1); Platelet Count Result 238 k/mm3 (150-375); Red Blood Count 4.36 M/mm3 (4.6-6.20); Red Cell Distribution Width 13.4 % (11.5-14.5); White Blood Count 8.3 K/mm3 (4.5-10.0)
[2021-08-22 04:46] LABS: Anion Gap 6 mmol/L (8-16); Blood Urea Nitrogen 17 mg/dL (9-20); Carbon Dioxide 25 mmol/L (22-30); Chloride 109 mmol/L (98-107); Cholesterol 93 mg/dL (0-200); Estimated CRCL calculation 63 ml/min; Estimated Glomerular Filt Rate > 60; Glucose 141 mg/dL (65-110); HDL Direct 41 mg/dL; Potassium 3.8 mmol/L (3.4-5.0); Sodium 140 mmol/L (137-145); Triglycerides 76 mg/dL (<150)
[2021-08-22 04:57] LABS: LDL Cholesterol Direct 33 mg/dL
[2021-08-22] MEDS: ATORVASTATIN 40 MG TABLET 80 MG PO (08:36)
[2021-08-22] MEDS: amLODIPine BESYLATE 2.5 MG TABLET PO (08:36)
[2021-08-22] MEDS: ASPIRIN 81 MG ENTERIC TABLET PO (08:36)
[2021-08-22] MEDS: CLOPIDOGREL BISULFATE 75 MG TABLET PO (08:36)
[2021-08-22] MEDS: METOPROLOL SUCCINATE EXT REL 50 MG TABCR PO (08:36)
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
[2021-08-22] MEDS: FUROSEMIDE 20 MG TABLET PO (13:06)
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
--- NOTE | 2021-08-22 15:32 | PC.NURSE ---
At discharge patient question about Colonoscopy and noted having to be off 1 week of plavix. Instructed to follow up with dr. jang.
== END 2021-08-22 19:00 | disposition home or self-care (01) ==
LOC: ANHED 02:31 → ANHIMU 05:06
PROVIDERS: Internal Medicine; Admitting Provider Internal Medicine; Emergency Provider Emergency Medicine; PCP Internal Medicine; Visit Provider Hospitalist
DX: R07.9 Chest pain, unspecified (principal); I25.810 Atherosclerosis of coronary artery bypass graft(s) without angina pectoris; E78.5 Hyperlipidemia, unspecified; I10 Essential (primary) hypertension; M54.2 Cervicalgia; Z79.02 Long term (current) use of antithrombotics/antiplatelets; Z79.82 Long term (current) use of aspirin; Z87.891 Personal history of nicotine dependence; Z95.1 Presence of aortocoronary bypass graft; Z79.899 Other long term (current) drug therapy
CPT/HCPCS: 36415; 71046; 78452; 80048; 80061; 81001; 83735; 83880; 84484; 85025; 85610; 85730; 93005; 93017; 99285; A9270; A9502; G0378; J2785

== ENCOUNTER 2021-12-11 10:25 | Observation (INO) | payer MEDICARE, SELFPAY ==
[2021-12-11] VITALS (17 sets, daily range): BP systolic 120–149; BP diastolic 78–91; PULSE 60–100; RESP 13–24; TEMP 36.1–36.8; O2SAT 96–100; BMI 25.0
--- NOTE | ~2021-12-11 | XR_ITS ---
EXAMINATION: XR chest 2V 12/11/2021 10:56 INDICATION: Left chest pain PROCEDURE: 2 view chest COMPARISON: Comparison to multiple prior studies sequentially, with oldest reviewed study dated 03/2015. FINDINGS: Chronic left basilar atelectasis/scarring. No focal pneumonia. Status post median sternotom y for CABG. The cardiomediastinal silhouette is within normal limits. There are no pleural effusions . There is no pneumothorax suspected. IMPRESSION: 1: NO ACUTE CARDIOPULMONARY DISEASE. Reviewed, dictated and finalized at location B. O TECHNICIAN
--- NOTE | 2021-12-11 10:59 | ECG_ITS ---
Measurements Intervals [place] Rate: 87 P: 43 OK: 152 QRS: -14 QRSD: 106 T: 51 QT: 360 QTc: 433 Interpretive Statements SINUS RHYTHM BORDERLINE ST-T WAVE ABNORMALITY- ANTEROLAT/HIGH LAT LEADS BASELINE WANDER- AVF BORDERLINE ECG Electronically Signed On 12-11-2021 12:33:24 BATH MIX OPERATOR by Jose Luis Neville D.O.
[2021-12-11 11:22] LABS: Basophils Percent Auto 0.5 % (0.2-1.2); Eosinophils Absolute Auto 0.1 K/mm3 (0-0.3); Eosinophils Percent Auto 0.7 % (0-4.4); Hematocrit 42.7 % (42.0-52.0); Hemoglobin 14.6 g/dL (14.0-18.0); Immature Granulocyte Absolute 0.03 K/mm3 (0.00-0.031); Immature Granulocyte Percent A 0.4 % (0-0.5); Lymphocytes Absolute Auto 1.87 K/mm3 (0.9-3.2); Lymphocytes Percent Auto 24.4 % (18.3-44.2); Mean Corpuscular HGB Conc 34.2 g/dl (32-36); Mean Corpuscular Hemoglobin 31.6 pg (26-34); Mean Corpuscular Volume 92.4 fl (80-100); Monocytes Absolute Auto 0.7 K/mm3 (0.1-0.6); Monocytes Percent Auto 9.7 % (2.6-8.5); Neutrophils Absolute Auto 4.9 K/mm3 (1.3-6.7); Neutrophils Percent Auto 64.3 % (45.5-73.1); Platelet Count Result 253 k/mm3 (150-375); Red Blood Count 4.62 M/mm3 (4.6-6.20); Red Cell Distribution Width 13.3 % (11.5-14.5); White Blood Count 7.7 K/mm3 (4.5-10.0)
[2021-12-11 11:29] LABS: Alanine Aminotransferase 22 U/L (4-50); Albumin Level 4.3 g/dL (3.5-5.1); Alkaline Phosphatase 70 U/L (38-126); Anion Gap 7 mmol/L (8-16); Aspartate Amino Transferase 25 U/L (17-59); Bilirubin,Total 1.1 mg/dL (0.2-1.3); Blood Urea Nitrogen 17 mg/dL (9-20); Calcium 8.8 mg/dL (8.4-10.2); Carbon Dioxide 23 mmol/L (22-30); Chloride 110 mmol/L (98-107); Estimated Glomerular Filt Rate > 60; Glucose 154 mg/dL (65-110); Potassium 3.9 mmol/L (3.4-5.0); Sodium 140 mmol/L (137-145)
[2021-12-11 11:33] LABS: INR 1.1; Prothrombin Time 13.6 Seconds (11.1-14.7)
[2021-12-11 11:34] LABS: Partial Thromboplastin Time 34.4 SECONDS (22.3-36.8)
--- NOTE | 2021-12-11 11:37 | ED.CHESTPAIN ---
HPI - Chest Pain General Chief Complaint: Chest Pain Stated Complaint: sharp stabbing cp, resolved cp after nitro Time Seen by Provider: 12/11/21 10:46 History of Present Illness HPI narrative: Patient is a 66-year-old male who presents ER with chest pain. Onset around 3 or 4 AM. Constant till he called EMS who administered nitroglycerin around 10:30 AM. Has history of quintuple bypass. Recently was evaluated and offered cardiac stenting but he opted for medical management. He does not have nitroglycerin at home. He does take Imdur. Denies any sweats or dyspnea. Patient has not been having exertional chest pain at home. Related Data Home Medications Medication Instructions Recorded Confirmed amlodipine 2.5 mg PO DAILY 08/28/20 08/21/21 aspirin 81 mg PO DAILY 08/28/20 08/21/21 atorvastatin 80 mg PO DAILY 08/28/20 08/21/21 clopidogrel 75 mg PO DAILY 08/28/20 08/21/21 furosemide 20 mg PO DAILY 08/28/20 08/21/21 metoprolol succinate 50 mg PO DAILY 08/28/20 08/21/21 potassium chloride 10 meq PO DAILY 08/28/20 08/21/21 Allergies Allergy/AdvReac Type Severity Reaction Status Date / Time No Known Allergies Allergy Verified 08/21/21 01:35 Review of Systems Review of Systems: All systems reviewed & are unremarkable except as noted in HPI and below Constitutional: Constitutional: Denies chills, Denies fever(s) and Denies weakness ENT: Denies nasal congestion and Denies sore throat Cardiovascular: Cardiovascular: Reports chest pain, Denies rapid heart rate and Denies radiating jaw, neck or arm pain Respiratory: Respiratory: Denies chest congestion, Denies cough and Denies dyspnea Gastrointestinal: Gastrointestinal: Denies abdominal pain, Denies diarrhea, Denies nausea and Denies vomiting Neurologic: Denies syncope, Denies focal weakness and Denies numbness PMFSH Past Medical History Medical History CAD (coronary artery disease) Hyperlipidemia Hypertension Nephrolithiasis With lithotripsy Surgical History Surgical History S/P CABG x 5 Family History Family History Mother Heart disease Aspiration pneumonia Father Heart disease Social History Social History Social History: The patient lives with his and has 4 children. His is a durable power workers compensation attorney for healthcare. The patient said that when he was the young man he was a hip be in use various drugs but not since then. He used to smoke cigarettes before he his . 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 No alcohol marijuana or illicit drugs at this time. But he did experiment with drugs as a young man. He desires to be a full code. Smoking status: Former smoker Alcohol intake: never Substance use: never Substance use type: does not use Gender identity (if verbalized by the patient): Male Spiritual care concerns: No Exam Narrative: GENERAL: Well-appearing, well-nourished, and in no acute distress. HEAD: Normocephalic, atraumatic. EYES: PERRL and EOMI. ENT: Mucous membranes moist. CHEST: Clear to auscultation. No respiratory distress. HEART: Regular rate and rhythm. Normal peripheral pulses. ABDOMEN: Soft, nontender, nondistended. EXTREMITIES: Normal range of motion. No edema. SKIN: Warm, dry, no rash. NEURO: Alert and oriented x3. PSYCH: Normal mood and affect. Course Course Emergency Course: Patient resting comfortably. Admit to hospitalist for cardiac rule out. [facility] consulted. Vital Signs Vital signs: Vital Signs Temperature 98.1 F 12/11/21 10:26 Pulse Rate 92 12/11/21 10:26 Respiratory Rate 17 12/11/21 10:26 Blood Pressure 149/91 H 12/11/21 10:26 Pulse Oximetry 96 12/11/21 10:26 Temperature 98.1 F 12/11/21 10:26 Pulse Rate 78 12/11/21 13
[2021-12-11 11:40] LABS: Troponin I < 0.012 ng/mL (0.000-0.034)
[2021-12-11] MEDS: ASPIRIN 81 MG CHEWABLE TABLET 324 MG PO (12:40)
--- NOTE | 2021-12-11 13:40 | PM.IMHP ---
H&P: HPI History of Present Illness Date/Time: PATIENT EXPECTED STAY IS LESS THAN [address] PATIENT ON OBSERVATION STATUS. 12/11/21 13:40 Chief Complaint: Chest pain Narrative: Mr. Bucio is a 58-year-old gentleman who presented emergency room with complaints of chest discomfort. Patient has a known history of coronary artery disease status post coronary bypass grafting, hypertension, And nephrolithiasis. Patient states that when he woke up this morning he woke up with chest discomfort over his left breast area that did not radiate down his arm or up his neck. Patient states that the chest pain lasted quite a while until EMS arrived and gave him nitroglycerin. Patient states he does not have nitroglycerin at home so he was unable to take himself. Patient states he did have associated shortness of breath, but no diaphoresis or nausea vomiting. Patient states that he was told August he needed a stent was to undergo cardiac catheterization, but did not want to stay in the hospital and was sent home on a door for medical therapy. Patient states since August he has been feeling fine until this morning. Patient states he has been taking all medications without any difficulty. Patient does have a history of noncompliance with follow-up. Patient had coronary bypass grafting in February of 2020 and did not follow-up with Cardiology he was seen in August of 2021 in this hospital. Patient denies any history of diabetes, and states that he recently did break his foot and they are considering doing surgery but they noticed that his blood glucose levels were elevated and they made him check his blood sugar every day at home and he was told he did not need any medication and he was not diabetic. Patient denies any recent lightheadedness, dizziness, syncopal, near syncopal episodes, or palpitations. Patient denies any abdominal pain, nausea, vomiting, constipation, or diarrhea. Patient denies any dysuria, hematuria, frequency, or urgency. [facility] the patient has been chest pain-free since he received nitroglycerin from EMS. Patient states she is feeling much improved. Troponin was negative, and EKG showed no acute changes. Review of Systems Review of Systems: A 12 point review of systems completed facial Repka positive and negative per HPI the remainder unremarkable PMFSH Past Medical History Medical History (Updated 12/11/21 @ 14:54 by Sarina Bell APRN) CAD (coronary artery disease) Hyperglycemia Hyperlipidemia Hypertension Nephrolithiasis With lithotripsy Surgical History Surgical History (Updated 12/11/21 @ 14:55 by Sarina Bell APRN) H/O rhinoplasty S/P CABG x 5 Family History Family History Mother Heart disease Aspiration pneumonia Father Heart disease Social History Social History Social History: The patient lives with his and has 4 children. His is a durable power assistant district attorney for healthcare. The patient said that when he was the young man he was a hip be in use various drugs but not since then. He used to smoke cigarettes before he his . 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 No alcohol marijuana or illicit drugs at this time. But he did experiment with drugs as a young man. He desires to be a full code. Smoking status: Former smoker Alcohol intake: never Substance use: never Substance use type: does not use Gender identity (if verbalized by the patient): Male Spiritual care concerns: No Meds Home Medications and Allergies Home Medications Medication Instructions Recorded Confirmed Type amlodipine 2.5 mg PO DAILY 08/28/20 08/21/21 History aspirin 81 mg PO DAILY 08/28/20 08/21/21 History atorvastatin 80 mg PO DAILY 08/28/20 08/21/21 History clopidogrel 75 mg PO DAILY 08/28/20 08/21/21 History furosemide 20 mg PO DAILY
[2021-12-11 14:09] LABS: Troponin I < 0.012 ng/mL (0.000-0.034)
--- NOTE | 2021-12-11 16:25 | ADMIMU ---
This patient, Josh Bucio, was admitted to IMU status, and placed in IMU Room 211-01. Patient/family oriented to hospital policies and general routines including ID bracelet, bed and alarms, visiting hours, pain management, procedures, bathroom and other care routines, personal items, smoking policy, room service/diet, and visiting hours. Valuables list has been completed. Information on how to activate the Rapid Response Team has been discussed. Patient/Family are encouraged to report perceived risks to care and to ask questions if they do not understand what they are told or what they should do.
[2021-12-11] MEDS: HEPARIN SOD/D5W 100 UNITS/ML 25,000 UNITS/250 ML BAG 10 UNITS IV CONT (17:03)
[2021-12-11] MEDS: HEPARIN SODIUM 5,000 UNITS/ML VIAL 4000 UNITS IV PUSH (17:03)
[2021-12-11 17:09] LABS: Troponin I < 0.012 ng/mL (0.000-0.034)
[2021-12-11 23:28] LABS: Partial Thromboplastin Time 152.1 SECONDS (22.3-36.8)
[2021-12-11] MEDS: ATORVASTATIN 40 MG TABLET 80 MG PO (23:51)
[2021-12-12] VITALS (9 sets, daily range): BP systolic 117–134; BP diastolic 74–83; PULSE 62–86; RESP 18–20; TEMP 36.4–36.8; O2SAT 95–96
[2021-12-12 06:52] LABS: Basophils Percent Auto 0.4 % (0.2-1.2); Eosinophils Absolute Auto 0.2 K/mm3 (0-0.3); Eosinophils Percent Auto 1.6 % (0-4.4); Hematocrit 45.7 % (42.0-52.0); Hemoglobin 15.5 g/dL (14.0-18.0); Immature Granulocyte Absolute 0.04 K/mm3 (0.00-0.031); Immature Granulocyte Percent A 0.4 % (0-0.5); Lymphocytes Absolute Auto 3.23 K/mm3 (0.9-3.2); Lymphocytes Percent Auto 33.1 % (18.3-44.2); Mean Corpuscular HGB Conc 33.9 g/dl (32-36); Mean Corpuscular Hemoglobin 31.2 pg (26-34); Mean Platelet Volume 8.9 fl (7.4-10.4); Monocytes Absolute Auto 0.9 K/mm3 (0.1-0.6); Monocytes Percent Auto 9.3 % (2.6-8.5); Neutrophils Absolute Auto 5.4 K/mm3 (1.3-6.7); Neutrophils Percent Auto 55.2 % (45.5-73.1); Platelet Count Result 292 k/mm3 (150-375); Red Blood Count 4.97 M/mm3 (4.6-6.20); Red Cell Distribution Width 13.4 % (11.5-14.5); White Blood Count 9.8 K/mm3 (4.5-10.0)
[2021-12-12 06:56] LABS: Partial Thromboplastin Time 66.3 SECONDS (22.3-36.8)
[2021-12-12 07:06] LABS: Alanine Aminotransferase 23 U/L (4-50); Albumin Level 4.5 g/dL (3.5-5.1); Alkaline Phosphatase 79 U/L (38-126); Anion Gap 7 mmol/L (8-16); Aspartate Amino Transferase 28 U/L (17-59); Bilirubin,Total 1.5 mg/dL (0.2-1.3); Blood Urea Nitrogen 15 mg/dL (9-20); Calcium 9.3 mg/dL (8.4-10.2); Carbon Dioxide 27 mmol/L (22-30); Chloride 107 mmol/L (98-107); Estimated CRCL calculation 69 ml/min; Estimated Glomerular Filt Rate > 60; Glucose 144 mg/dL (65-110); Potassium 3.9 mmol/L (3.4-5.0); Sodium 141 mmol/L (137-145)
[2021-12-12] MEDS: HEPARIN SODIUM 5,000 UNITS/ML VIAL 3500 UNITS IV PUSH (07:36)
[2021-12-12 08:24] LABS: Hemoglobin A1C 6.6 % (<5.7)
[2021-12-12] MEDS: POTASSIUM CHLORIDE 10 MEQ TABLET.ER PO (09:22)
[2021-12-12] MEDS: FUROSEMIDE 20 MG TABLET PO (09:22)
[2021-12-12] MEDS: ISOSORBIDE MONONITRATE 30 MG TAB.ER.24H PO (09:22)
[2021-12-12] MEDS: ASPIRIN 81 MG CHEWABLE TABLET PO (09:22)
[2021-12-12] MEDS: CLOPIDOGREL BISULFATE 75 MG TABLET PO (09:22)
[2021-12-12] MEDS: METOPROLOL SUCCINATE EXT REL 50 MG TABCR PO (09:23)
[2021-12-12] MEDS: amLODIPine BESYLATE 2.5 MG TABLET PO (09:23)
[2021-12-12 13:34] LABS: Partial Thromboplastin Time 157.8 SECONDS (22.3-36.8)
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
--- NOTE | 2021-12-12 15:17 | PM.DS ---
DS: Admitting Diagnosis Discharge Date 12/12/2021 Admitting Diagnosis Chest pain DS: Discharge Diagnosis Discharge Diagnosis (1) Chest pain: Code(s): R07.9 - Chest pain, unspecified Status: Acute Assessment and Plan: Initial troponin was negative. He was placed on heparin drip due to underlying history of coronary artery disease. His was admitted for observation and troponin were trended which remained negative. EKG was done on admission and was without any acute ST-T changes compared to previous EKG no new changes were present. Cardiology was consulted and suggested no change in medication and to follow up with Cardiology as outpatient basis. A chest pain did resolve with nitroglycerin and will provide on nitroglycerin sublingual tablets prescription at discharge. (2) Hypertension: Code(s): I10 - Essential (primary) hypertension Status: Chronic Assessment and Plan: Resumed his home medication during hospital stay (3) Hyperlipidemia: Code(s): E78.5 - Hyperlipidemia, unspecified Status: Chronic Assessment and Plan: Home medication (4) Hyperglycemia: Code(s): R73.9 - Hyperglycemia, unspecified Status: Acute Assessment and Plan: Patient states he has been told he is not diabetic. Patient's blood glucose levels in August and today were both in 150s. A1c was checked and was 6.6. Which puts him as diabetic range. We will discuss this with his primary care upon follow-up for further management DS: Summary Hospital Course Hospital Course: See above Time Spent with Patient Time attestation: Total time spent providing and/or coordinating discharge services: 31 minutes Exam Narrative: GENERAL: The patient is well developed, not in acute distress HEENT: Nonicteric sclerae, PERRLA, EOMI. Oropharynx clear. Moist mucous membranes. Conjunctivae appear well perfused. CHEST: Chest wall is nontender. HEART: Regular rate and rhythm without murmur, rubs, or gallops LUNGS: Clear to auscultation bilaterally. no respiratory distress ABDOMEN: Soft, positive bowel sounds, non-tender, no organomegaly. SKIN: No rash, no excessive bruising, petechiae, or purpura. NEUROLOGIC: Cranial nerves II-XII intact, alert and oriented x 3, no gross motor deficits EXTREMITIES: no edema, cyanosis or clubbing Extrem: General: normal exam except as noted and no edema DS: Data Data Completed and Pending Labs on day of discharge: Labs from last 24 hours 12/12/21 12/12/21 12/12/21 13:02 06:29 06:29 WBC RBC Hgb Hct MCV MCH MCHC RDW Plt Count MPV Immature Gran % (Auto) Neut % (Auto) Lymph % (Auto) Esmeralda % (Auto) Eos % (Auto) Baso % (Auto) Lymph # (Auto) Esmeralda # (Auto) Eos # (Auto) Baso # (Auto) Abs Immat Gran (auto) Absolute Neuts (auto) Absolute Nucleated RBC Nucleated RBC % APTT 157.8 H 66.3 H Sodium Potassium Chloride Carbon Dioxide Anion Gap BUN Creatinine Estim Creat Clear Calc Estimated GFR Glucose Hemoglobin A1c 6.6 H Calcium Total Bilirubin AST ALT Alkaline Phosphatase Troponin I Total Protein Albumin 12/12/21 12/12/21 12/11/21 06:29 06:29 22:42 WBC 9.8 RBC 4.97 Hgb 15.5 Hct 45.7 MCV 92.0 MCH 31.2 MCHC 33.9 RDW 13.4 Plt Count 292 MPV 8.9 Immature Gran % (Auto) 0.4 Neut % (Auto) 55.2 Lymph % (Auto) 33.1 Esmeralda % (Auto) 9.3 H Eos % (Auto) 1.6 Baso % (Auto) 0.4 Lymph # (Auto) 3.23 H Esmeralda # (Auto) 0.9 H Eos # (Auto) 0.2 Baso # (Auto) 0.0 Abs Immat Gran (auto) 0.04 H Absolute Neuts (auto) 5.4 Absolute Nucleated RBC 0.0 Nucleated RBC % 0.0 APTT 152.1 H Sodium 141 Potassium 3.9 Chloride 107 Carbon Dioxide 27 Anion Gap 7 L BUN 15 Creatinine 1.00 Estim Creat Clear Calc 69 Estimated GFR > 60 Glucose
== END 2021-12-12 15:47 | disposition home or self-care (01) ==
LOC: ANHED 14:37 → ANHIMU 12-12 11:48
PROVIDERS: Nurse Practitioner; Nurse Practitioner Adult Health; Physician Assistant; Admitting Provider Internal Medicine; Emergency Provider Emergency Medicine; PCP Internal Medicine; Visit Provider Internal Medicine
DX: R07.9 Chest pain, unspecified (principal); I25.10 Atherosclerotic heart disease of native coronary artery without angina pectoris; I10 Essential (primary) hypertension; E78.5 Hyperlipidemia, unspecified; R73.9 Hyperglycemia, unspecified; R06.02 Shortness of breath; Z95.1 Presence of aortocoronary bypass graft; Z87.442 Personal history of urinary calculi; Z87.891 Personal history of nicotine dependence; Z79.02 Long term (current) use of antithrombotics/antiplatelets
CPT/HCPCS: 36415; 71046; 80053; 83036; 84484; 85025; 85610; 85730; 93005; 96374; 96376; 99285; A9270; G0378; J1644

== ENCOUNTER 2022-05-14 08:09 | Outpatient (CLI) | payer MEDICARE, SELFPAY ==
--- NOTE | ~2022-05-14 | MR_ITS ---
EXAMINATION: MR brain/brain stem wo con DATE: 05/14/2022 09:12 INDICATION: Dementia TECHNIQUE: Magnetic resonance imaging (MRI) of the brain and brainstem was performed without intraven ous contrast. Sequences included sagittal and axial T1-weighted SE, axial diffusion-weighted FS SE, a xial 3D SWAN, axial T2-weighted FLAIR, and axial T2-weighted FSE. Apparent diffusion coefficient (ADC ) maps were created. COMPARISON: None. FINDINGS: There are no areas of restricted diffusion to suggest acute infarction. No intracranial hemorrhage or abnormal intracranial mass lesion. There are scattered areas of nonspecific increased T2-weighted si gnal intensity in the cerebral white matter, predominantly involving the deep and periventricular whi te matter. There are no intraparenchymal signal abnormalities seen on the other pulse sequences. The ventricles are symmetric and normal in size. There are no abnormal extra-axial fluid collections. Spencer w voids are seen in the cerebral arteries on the T2-weighted sequences consistent with their expected patency. Mild mucosal thickening the bilateral ethmoid sinuses. Visualized orbits and soft tissues a re unremarkable. IMPRESSION: 1. No acute intracranial process. 2. Bilateral nonspecific mild scattered periventricular predominant white matter T2 hyperintensity mo st likely related to chronic small vessel ischemic disease. Reviewed, dictated and finalized at location A. IMPRESSION: 1. No acute intracranial process. 2. Bilateral nonspecific mild scattered periventricular predominant white matte r T2 hyperintensity most likely related to chronic small vessel ischemic diseas e.
== END 2022-05-14 08:10 | disposition home or self-care (01) ==
PROVIDERS: PCP Internal Medicine; Visit Provider Psychiatry & Neurology Neurology
DX: F03.90 Unspecified dementia, unspecified severity, without behavioral disturbance, psychotic disturbance, mood disturbance, and anxiety (principal)
CPT/HCPCS: 70551

== ENCOUNTER 2022-05-17 10:35 | Outpatient (CLI) | payer MEDICARE, SELFPAY ==
--- NOTE | 2022-05-27 10:45 | WPDNEUROLOGY ---
Neurology EEG Report General Information Date of Study: 05/17/22 TEST eeg DIAGNOSIS dementia CONDITION OF RECORDING awake drowsy and sleep EEG NUMBER [id number] CLINICAL HISTORY patient reports his tells him he is having issues with his memory EEG DESCRIPTION basic resting occipital frequency consists of low-voltage 8 to 10 hertz per 2nd alpha admixed with low-voltage 15 to 18 hertz per 2nd beta activity. Intermittent low to medium voltage 3 to 4 hertz per 2nd delta activity seen more prominent over the left hemisphere as compared to the right. Bilateral sleep activity seen during sleep. Hyperventilation not done. Photic stimulation produced normal drive. Non paroxysmal. Nonfocal. Nonlateralizing. IMPRESSION Abnormal record due to the presence of intermittent slow activity which is somewhat more prominent over the left hemispheric linkages. These abnormalities could be suggestive of ongoing organic or metabolic encephalopathy with focal insult of the left hemisphere possibility of neuro degenerative process also likely .
== END 2022-05-17 10:36 | disposition home or self-care (01) ==
LOC: ANHNEURO 10:37
PROVIDERS: PCP Internal Medicine; Visit Provider Psychiatry & Neurology Neurology
DX: F03.90 Unspecified dementia, unspecified severity, without behavioral disturbance, psychotic disturbance, mood disturbance, and anxiety (principal); R94.01 Abnormal electroencephalogram [EEG]
CPT/HCPCS: 95816

== ENCOUNTER 2022-06-23 08:12 | Emergency (ER) | payer MEDICARE, MEDICAID, SELFPAY ==
--- NOTE | ~2022-06-23 | CT_ITS ---
EXAMINATION: CT abdomen pelvis w con DATE: 06/23/2022 09:15 INDICATION: Low abdominal pain. TECHNIQUE: Computed tomography (CT) of the abdomen and pelvis was performed with 100 mL Omnipaque 350 intravenous contrast. Automated exposure control and iterative reconstruction technique were employe d. The dose-length product was 474.65 mGy-cm. COMPARISON: CT abdomen and pelvis 06/06/2017 FINDINGS: The visualized portions of the lung bases demonstrate mild atelectasis. No pleural effusion . The superior aspects of the liver and spleen are excluded. There is a gallstone in the gallbladder, which is normal in size. The pancreas and adrenal glands are normal. There is cortical thinning of t he kidneys. There are cysts in the kidneys measuring up to 9 mm on the left. There are approximately 4 stones in right kidney measuring up to 3 mm. There are 6 stones in left kidney measuring up to 5 mm . The prostate is moderately enlarged. There is diverticulosis of the colon without evidence of diver ticulitis. The appendix is normal. There is an umbilical hernia containing fat with fat stranding sug gesting inflammation or scarring. There is a small right inguinal hernia containing fat. There are no pathologically enlarged lymph nodes. There is no free intraperitoneal fluid. There is a 3.1 cm fusif orm infrarenal aortic aneurysm. There is moderate lumbar spondylosis. IMPRESSION: 1. Umbilical hernia containing fat with inflammation versus scarring of the involved fat. 2. Small sliding hiatal hernia. 3. Cholelithiasis. 4. Bilateral nonobstructing kidney stones. 5. 3.1 cm fusiform aneurysm of infrarenal aorta. 6. Small right inguinal hernia containing fat. Reviewed, dictated and finalized at location A. IMPRESSION: 1. Umbilical hernia containing fat with inflammation versus scarring of the inv olved fat. 2. Small sliding hiatal hernia. 3. Cholelithiasis. 4. Bilateral nonobstructing kidney stones. 5. 3.1 cm fusiform aneurysm of infrarenal aorta. 6. Small right inguinal hernia containing fat.
[2022-06-23 08:16] VITALS: BP 155/80; PULSE 67; RESP 16; TEMP 36.2; O2SAT 98
--- NOTE | 2022-06-23 08:29 | ED.GENADULT ---
HPI - General Adult General Chief complaint: Abdominal Pain Stated complaint: abd pain Time Seen by Provider: 06/23/22 08:16 Source: RN notes reviewed History of Present Illness HPI narrative: Patient presents emergency department from home for abdominal pain. Patient states pain began this morning upon awaking the pain is located in the periumbilical area does not radiate and described as aching in nature. Denies any fevers or chills nausea vomiting or diarrhea. States he has not take anything for pain at home Related Data Home Medications Medication Instructions Recorded Confirmed amlodipine 2.5 mg tablet 2.5 mg PO DAILY 08/28/20 12/11/21 aspirin 81 mg tablet 81 mg PO DAILY 08/28/20 12/11/21 atorvastatin 80 mg tablet 80 mg PO HS 08/28/20 12/11/21 clopidogrel 75 mg tablet 75 mg PO DAILY 08/28/20 12/11/21 furosemide 20 mg tablet 20 mg PO DAILY 08/28/20 12/11/21 metoprolol succinate 50 mg 50 mg PO DAILY 08/28/20 12/11/21 tablet,extended release 24 hr potassium chloride 10 mEq 10 meq PO DAILY 08/28/20 12/11/21 tablet,extended release Allergies Allergy/AdvReac Type Severity Reaction Status Date / Time No Known Allergies Allergy Verified 06/23/22 08:28 Review of Systems Review of Systems: Gen.: Denies fevers or chills ENT: Denies congestion Respiratory: Denies shortness of breath or cough CV: Denies chest pain or palpitations GI: See HPI denies burning, urgency, frequency or hematuria Musculoskeletal: Denies back pain or muscle pain Neuro: Denies numbness, tingling, weakness or focal weakness Skin: Denies rash Except as documented, all other systems reviewed and negative [facility] Past Medical History Medical History CAD (coronary artery disease) Hyperglycemia Hyperlipidemia Hypertension Nephrolithiasis With lithotripsy Surgical History Surgical History H/O rhinoplasty S/P CABG x 5 Family History Family History Mother Heart disease Aspiration pneumonia Father Heart disease Social History Social History Social History: The patient lives with his and has 4 children. His is a durable power contracts attorney for healthcare. The patient said that when he was the young man he was a hip be in use various drugs but not since then. He used to smoke cigarettes before he his . 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 No alcohol marijuana or illicit drugs at this time. But he did experiment with drugs as a young man. He desires to be a full code. Smoking status: Former smoker Alcohol intake: never Substance use: never Substance use type: does not use Gender identity (if verbalized by the patient): Male Spiritual care concerns: No Exam Narrative: APPEARANCE: No acute distress, nontoxic, resting in bed HEENT: Normocephalic, atraumatic, OMM RESPIRATORY: No respiratory distress, clear to auscultation bilaterally with no rhonchi wheezing or rales CARDIOVASCULAR: RRR s murmur ABDOMINAL: Soft nondistended tender palpation in the periumbilical region no pain in the right upper quadrant, left upper quadrant right lower quadrant left lower quadrant no rebound or guarding, small periumbilical hernia that is firm and tender to palpation MUSCULOSKELETAl: Moves all extremities. No clubbing, cyanosis or edema. NEURO: Awake and alert. Following commands, speech normal, no focal deficits SKIN:: Warm, dry. Normal Color PSYCHIATRIC: Normal affect/mood Course Course Emergency Course: Following pain medications reevaluated the patient post CT scan I was able to partially reduce the hernia with resolution of the patient's abdominal pain Discussed Dr. Domingo agrees plan for discharge and follow-up as an outpatient Patient states that they are feeling much better at this time. States
[2022-06-23 08:32] LABS: Basophils Percent Auto 0.4 % (0.2-1.2); Eosinophils Absolute Auto 0.2 K/mm3 (0-0.3); Eosinophils Percent Auto 2.7 % (0-4.4); Hematocrit 44.1 % (42.0-52.0); Hemoglobin 14.9 g/dL (14.0-18.0); Immature Granulocyte Absolute 0.01 K/mm3 (0.00-0.031); Immature Granulocyte Percent A 0.1 % (0-0.5); Lymphocytes Absolute Auto 2.19 K/mm3 (0.9-3.2); Lymphocytes Percent Auto 31.6 % (18.3-44.2); Mean Corpuscular HGB Conc 33.8 g/dl (32-36); Mean Corpuscular Hemoglobin 31.2 pg (26-34); Mean Corpuscular Volume 92.5 fl (80-100); Monocytes Absolute Auto 0.7 K/mm3 (0.1-0.6); Monocytes Percent Auto 10.4 % (2.6-8.5); Neutrophils Absolute Auto 3.8 K/mm3 (1.3-6.7); Neutrophils Percent Auto 54.8 % (45.5-73.1); Platelet Count Result 270 k/mm3 (150-375); Red Blood Count 4.77 M/mm3 (4.6-6.20); Red Cell Distribution Width 13.2 % (11.5-14.5); White Blood Count 6.9 K/mm3 (4.5-10.0)
[2022-06-23 08:46] LABS: Alanine Aminotransferase 26 U/L (6-50); Albumin Level 4.4 g/dL (3.5-5.1); Alkaline Phosphatase 61 U/L (38-126); Anion Gap 12 mmol/L (8-16); Aspartate Amino Transferase 37 U/L (17-59); Bilirubin,Total 1.4 mg/dL (0.2-1.3); Blood Urea Nitrogen 16 mg/dL (9-20); Calcium 8.9 mg/dL (8.4-10.2); Carbon Dioxide 25 mmol/L (22-30); Chloride 104 mmol/L (98-107); Estimated CRCL calculation 72 ml/min; Estimated Glomerular Filt Rate > 60; Glucose 131 mg/dL (65-110); Lipase 101 U/L (23-300); Potassium 4.7 mmol/L (3.4-5.0); Sodium 141 mmol/L (137-145)
[2022-06-23 08:59] LABS: Lactic Acid Reflex 0.9 mmol/L (0.7-2.0)
[2022-06-23 09:02] LABS: Appearance Urine Clear (Clear); Bilirubin Urine Negative (Negative); Blood Urine Trace-lysed (Negative); Color Urine Yellow (Yellow); Glucose Urine UA Trace mg/dL (Negative); Ketones Urine Negative (Negative); Leukocyte Esterase Ur Negative LEU/UL (Negative); Nitrate Urine Negative (Negative); Protein Urine Negative (Negative); Specific Grav Ur 1.015 (1.001-1.035); Urobilinogen Urine 0.2 mg/dL (<2.0)
[2022-06-23 09:23] LABS: Add Urine Microscopic? YES; RBC Urine 0-2 /hpf (0-2); WBC Urine 0-3 /hpf (0-3)
[2022-06-23 09:24] LABS: Amorphous Sediment Urine Few; Mucus Urine Rare /lpf
[2022-06-23 10:26] VITALS: BP 134/85; PULSE 64; RESP 18; O2SAT 97
== END 2022-06-23 10:27 | disposition home or self-care (01) ==
PROVIDERS: Emergency Provider Emergency Medicine; PCP Internal Medicine
DX: K42.9 Umbilical hernia without obstruction or gangrene (principal); R10.33 Periumbilical pain; I25.10 Atherosclerotic heart disease of native coronary artery without angina pectoris; E78.5 Hyperlipidemia, unspecified; I10 Essential (primary) hypertension
CPT/HCPCS: 36415; 74177; 80053; 81001; 83605; 83690; 85025; 96365; 99284; J0131; Q9967

== ENCOUNTER 2022-07-16 08:23 | Outpatient (CLI) | payer MEDICARE, MEDICAID, SELFPAY ==
--- NOTE | ~2022-07-16 | NM_ITS ---
EXAMINATION: NM hepatobiliary wo pharm DATE: 07/16/2022 13:25 CDT INDICATION: Abdominal pain. COMPARISON: CT dated 06/23/2022. TECHNIQUE: 5.0 mCi Tc-99m mebrofenin (Choletec) was administered intravenously. Scintigraphic images of the abdomen were obtained for one hour. At the 1 hour time point, the patient drank 8 oz Ensure, and imaging was continued for 60 minutes. Gallbladder ejection fraction was calculated by the technol ogist. FINDINGS: There is normal clearance of radiotracer from the blood pool. There is homogeneous tracer u ptake by the liver. Activity progresses to the bowel and gallbladder. The gallbladder ejection fract ion is 74%. Note that with this technique, normal GBEF >= 33%. IMPRESSION: 1. Normal hepatobiliary scan. Reviewed, dictated and finalized at location B.
== END 2022-07-16 08:24 | disposition home or self-care (01) ==
PROVIDERS: PCP Internal Medicine; Visit Provider Surgery
DX: K80.20 Calculus of gallbladder without cholecystitis without obstruction (principal)
CPT/HCPCS: 78226; A9537

== ENCOUNTER 2022-09-10 09:26 | Outpatient (CLI) | payer MEDICARE, MEDICAID, SELFPAY ==
[2022-09-10 10:15] LABS: Anion Gap 10 mmol/L (8-16); Blood Urea Nitrogen 15 mg/dL (9-20); Calcium 9.2 mg/dL (8.4-10.2); Carbon Dioxide 29 mmol/L (22-30); Chloride 105 mmol/L (98-107); Estimated Glomerular Filt Rate > 60; Glucose 137 mg/dL (65-110); Potassium 4.5 mmol/L (3.4-5.0); Sodium 144 mmol/L (137-145)
== END 2022-09-10 09:27 | disposition home or self-care (01) ==
LOC: ANHSURGERY 09:33
PROVIDERS: Anesthesiology; PCP Internal Medicine; Visit Provider Surgery
DX: Z51.81 Encounter for therapeutic drug level monitoring (principal); Z79.899 Other long term (current) drug therapy
CPT/HCPCS: 36415; 80048

== ENCOUNTER 2022-09-18 01:46 | Day surgery (SDC) | payer MEDICARE, MEDICAID, SELFPAY ==
[2022-09-09 12:48] VITALS: BMI 24.3
--- NOTE | 2022-09-09 13:00 | PC.NURSE ---
PRE-OP INSTRUCTIONS, PLEASE READ CAREFULLY Report to the Outpatient Waiting Room, entrance under the green pavilion located off [facility], at time _1000_ on date _09/18/22_. Planned Procedure Time: _1200_. Time changes happen often and if your time is changed the preop area will call you the afternoon before. - You and your visitor will be asked to self-screen and do not enter if you have any COVID symptoms. - Only one visitor is requested with a max of two and NO children visitors are allowed at this time. - The patient visitor may be requested to leave or wait in car when not with patient due to distancing restrictions. - A mask is optional within the hospital. Patients may have clear liquids (water, carbonated beverages, clear teas, apple juice) until 3 hours prior to surgery (0900 AM) with a maximum of 20 ounces. - No food from midnight until time of surgery Take the following medications with a SIP of water the morning of surgery: _AMLODIPINE, ASPIRIN, METOPROLOL, ISOSORBIDE, NITROGLYCERIN IF NEEDED_ Medications to discontinue per physician __N/A___, Date to take last dose Please no make-up, nail armenian, hairspray, perfume, deodorant, or body powder the day of surgery. No jewelry (including any body piercings) or valuables the day of surgery, leave them at home. Please take a shower or bath the night before, or the morning of, surgery with an antibacterial soap. Wear comfortable, loose fitting clothing. - Jewelry must be removed prior to entering the operating room. Rings and piercings that are not removed may be cut off. - The hospital will not accept responsibility for valuables. - Please leave all valuables, including medications, at home the day of surgery. If you are going home after surgery, a licensed hazmat cdl driver must drive you home. - NO public transportation without another adult if you receive anesthesia. - We recommend that an adult stay with you for 24 hours following discharge. - We also recommend that you do not drive, make important decision, drink alcoholic beverages, or take any drugs that were not prescribed by your health care provider for at least 24 hours after your discharge time. Follow any additional instructions given to you from your surgeon. [facility] AM OF SURGERY If you or anyone in your household have experienced Covid symptoms in the past week, please notify your surgeon or the nurse liaison at the phone number below for possible testing. Telephone instructions given to _PT'S SPOUSE (YANNI)__and asked if any additional questions and then verbalized understanding. Patient advised to call surgeon office or pre surgery nurse liaison [phone] if any additional questions.
[2022-09-18] VITALS (8 sets, daily range): BP systolic 120–150; BP diastolic 69–90; PULSE 57–69; RESP 14–20; TEMP 37.2; O2SAT 97–99
[2022-09-18] MEDS: LACTATED RINGERS 1,000 ML 30 ML IV CONT (10:12)
[2022-09-18] MEDS: ACETAMINOPHEN 500 MG TABLET 1000 MG PO (10:13)
[2022-09-18] MEDS: KETOROLAC 15 MG/ML VIAL (*BKC) IV PUSH (10:13)
--- NOTE | 2022-09-18 10:44 | WPDANESEPPF ---
Anes - Initial Pre Proc Eval Procedure: Operation Date: 09/18/22 12:00 Proposed Procedures p Open Repair Incarcerated Umbilical Hernia with Mesh - Jessie Domingo MD Date/Time: 09/18/22 10:44 Surgeon: Jessie Domingo MD Pre Op Diagnosis: incarcerated umbilical hernia Patient Data Age: 67 Gender: M Height: 1.83 m Weight: 82 kg Last Vital Signs Temp 37.2 C 09/18/22 09:49 Pulse 66 09/18/22 09:49 Resp 18 09/18/22 09:49 BP 150/90 H 09/18/22 09:49 Pulse Ox 99 09/18/22 09:49 O2 Del Method Room Air 09/18/22 09:49 Allergies Allergy/AdvReac Type Severity Reaction Status Date / Time No Known Allergies Allergy Verified 09/18/22 09:57 Home Medications Medication Instructions Recorded Confirmed Type amlodipine 2.5 mg tablet 2.5 mg PO DAILY 08/28/20 09/18/22 History aspirin 81 mg tablet 81 mg PO DAILY 08/28/20 09/18/22 History atorvastatin 80 mg tablet 80 mg PO HS 08/28/20 09/18/22 History furosemide 20 mg tablet 20 mg PO DAILY 08/28/20 09/18/22 History metoprolol succinate 50 mg 50 mg PO DAILY 08/28/20 09/18/22 History tablet,extended release 24 hr potassium chloride 10 mEq 10 meq PO DAILY 08/28/20 09/18/22 History tablet,extended release isosorbide mononitrate 30 mg 30 mg PO DAILY #90 tabs 08/22/21 09/18/22 Rx tablet,extended release 24 hr nitroglycerin 0.4 mg sublingual 0.4 mg sublingual Q5-15M PRN chest 12/12/21 09/18/22 Rx tablet pain #30 tabs citalopram 10 mg tablet 10 mg PO QHS #30 tabs 09/10/22 09/18/22 Rx Patient hx anesthesia problems: none Family hx anesthesia problems: none Results Review: All pre-operative results and documents have been reviewed as part of the pre-operative evaluation. [facility] Past Medical History Medical History CAD (coronary artery disease) Hyperglycemia Hyperlipidemia Hypertension Nephrolithiasis With lithotripsy Surgical History Surgical History H/O rhinoplasty History of lithotripsy S/P CABG x 5 Family History Family History Mother Heart disease Aspiration pneumonia Ovarian cancer Hypertension Father Heart disease Social History Social History Social History: The patient lives with his and has 4 children. His is a durable power track greaser for healthcare. The patient said that when he was the young man he was a hip be in use various drugs but not since then. He used to smoke cigarettes before he his . 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 No alcohol marijuana or illicit drugs at this time. But he did experiment with drugs as a young man. He desires to be a full code. Smoking packs per day: 1 Smoking cigarettes per day: 20.0 Years smoked: 9 Smoking pack-years: 9.00 Smoking status: Former smoker Tobacco type: cigarettes Second hand tobacco smoke exposure: No Additional smoking assessment comments: QUIT 1977 Alcohol intake: never Substance use: never Substance use type: does not use Lack of Transportation: No Lack of Food: Sometimes True Current Housing: I Have Housing Concerned About Future Housing: No Difficulty Paying Gas/Electric Bills: No Difficulty Paying for Meds: No Currently Unemployed: No Education: High School Diploma/GED Difficulty w/ Childcare or Family Care: No Living arrangements: with family Gender identity (if verbalized by the patient): Male Spiritual care concerns: No Anes - Eval Final PreProcedure Day of Procedure 09/18/22 10:44 Patient weight: normal Heart: regular rate and rhythm Lungs: clear to auscultation Airway: Mallampati scale class II Neurological: alert and oriented Last oral intake: >/= 8 hours ASA classification: III Emergent: no Anesthetic plan: proceed Anesthesia type and monitoring: ge
--- NOTE | 2022-09-18 11:12 | PM.IMHP ---
H&P: HPI History of Present Illness Date/Time: 09/18/22 11:12 Chief Complaint: umbilical hernia Narrative: Josh is a 67 y/o male who presents to the office accompanied by his for evaluation of Periumbilical abdominal pain. Patient states he has know he has had a hernia at his umbilicus and has been having pain intermittently for many years, but had worsened over the last few weeks. Patient presented to the ED on 06/23/22 for abdominal pain that had started that morning prior to arrival. CT abd/pelvis w contrast was performed in the ED, IMPRESSION: 1. Umbilical hernia containing fat with inflammation versus scarring of the involved fat. 2. Small sliding hiatal hernia. 3. Cholelithiasis. 4. Bilateral nonobstructing kidney stones. 5. 3.1 cm fusiform aneurysm of infrarenal aorta. 6. Small right inguinal hernia containing fat. Patient states that since he was seen in the ED, he has not experienced any pain at his umbilicus. He does report RUQ abdominal pain. He states that pain has been intermittent for several months. He denies any increase in pain with eating. He denies any associated nausea/vomiting or abdominal bloating. Patient does have a previous cardiac history of CABG.? Review of Systems Review of Systems: All systems reviewed & are unremarkable except as noted in HPI and below PMFSH Past Medical History Medical History CAD (coronary artery disease) Hyperglycemia Hyperlipidemia Hypertension Nephrolithiasis With lithotripsy Surgical History Surgical History H/O rhinoplasty History of lithotripsy S/P CABG x 5 Family History Family History Mother Heart disease Aspiration pneumonia Ovarian cancer Hypertension Father Heart disease Social History Social History Social History: The patient lives with his and has 4 children. His is a durable power disability attorney for healthcare. The patient said that when he was the young man he was a hip be in use various drugs but not since then. He used to smoke cigarettes before he his . 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 No alcohol marijuana or illicit drugs at this time. But he did experiment with drugs as a young man. He desires to be a full code. Smoking packs per day: 1 Smoking cigarettes per day: 20.0 Years smoked: 9 Smoking pack-years: 9.00 Smoking status: Former smoker Tobacco type: cigarettes Second hand tobacco smoke exposure: No Additional smoking assessment comments: QUIT 1978 Alcohol intake: never Substance use: never Substance use type: does not use Lack of Transportation: No Lack of Food: Sometimes True Current Housing: I Have Housing Concerned About Future Housing: No Difficulty Paying Gas/Electric Bills: No Difficulty Paying for Meds: No Currently Unemployed: No Education: High School Diploma/GED Difficulty w/ Childcare or Family Care: No Living arrangements: with family Gender identity (if verbalized by the patient): Male Spiritual care concerns: No Meds Home Medications and Allergies Home Medications Medication Instructions Recorded Confirmed Type amlodipine 2.5 mg tablet 2.5 mg PO DAILY 08/28/20 09/18/22 History aspirin 81 mg tablet 81 mg PO DAILY 08/28/20 09/18/22 History atorvastatin 80 mg tablet 80 mg PO HS 08/28/20 09/18/22 History furosemide 20 mg tablet 20 mg PO DAILY 08/28/20 09/18/22 History metoprolol succinate 50 mg 50 mg PO DAILY 08/28/20 09/18/22 History tablet,extended release 24 hr potassium chloride 10 mEq 10 meq PO DAILY 08/28/20 09/18/22 History tablet,extended release isosorbide mononitrate 30 mg 30 mg PO DAILY #90 tabs 08/22/21 09/18/22 Rx tablet,extended release 24 hr nitroglycerin 0.4 mg sublingual 0.4 mg sublingual Q5-15M PRN
--- NOTE | 2022-09-18 11:14 | WPDHPUPDATE1 ---
History and Physical Update Update Date/Time: 09/18/22 11:14 History and Physical has been reviewed, including an updated exam of the patient. There are NO changes in the patient's condition. Risks, benefits, and alternatives have been discussed and questions answered. Patient agrees to proceed with procedure.
[2022-09-18] MEDS: ceFAZolin 2 GM/D5W 50 ML 2 GM/50 ML BAG IVPB (11:59)
[2022-09-18] MEDS: LIDO 1%/EPINEPHRINE/PF 1:200,000 30 ML VIAL XX (12:20)
--- NOTE | 2022-09-18 12:54 | W.PM.PROC2 ---
Procedure Note - Detailed Date of Procedure 09/18/22 Pre-op Diagnosis incarcerated umbilical hernia Post-op Diagnosis Same Procedure Performed repair of incarcerated umbilical hernia with mesh Surgeon Jessie Domingo MD Anesthesia General Indications 67 y/o M c incarcerated umbilical hernia Findings incarcerated umbilical hernia c omentum and adjacent loop of SB Description of Procedure The patient was taken to the operating room placed in the supine position. After adequate induction of general anesthesia, the patient was prepped and draped in the normal sterile fashion. A time-out was then done to verify the patient's identity, as well as the procedure being performed. I began by localizing the area around the umbilicus. I then made a curvilinear incision in the infraumbilical fold. This was taken down to level fascia. I then was able to bluntly dissect around the umbilicus. I then carefully dissected the umbilicus off the underlying fascia. I then noted a small defect with incarcerated omentum and an adjacent loop of small intestine. I was able to mobilize the incarcerated tissue and reduce it back into the abdominal cavity. This left an approximately 1.5 cm defect. I then placed a 4.6 cm round piece of ventralex mesh in the underlay position. This was noted to have good, wide local coverage of the defect. I then closed this defect primarily with interrupted 0 Ethibond suture over the underlay mesh repair. I then reapproximated the umbilicus to the fascia with a 3 0 Vicryl U-stitch. The subcutaneous tissue was then closed with 3 0 Vicryl suture. The skin was closed with 4 0 Monocryl subcuticular suture. Dermabond was then placed on the wound. The patient tolerated the procedure well was extubated in the operating room postop. She will be transferred to the recovery room in stable condition. Implants 4.6 cm ventralex mesh in underlay position Estimated Blood Loss 5 Drains No Packing No Pathology None sent Complications No immediate complications Condition Stable Disposition PACU [facility] Billing Surgery - Charge Forward: Surgery Billing
== END 2022-09-18 14:30 | disposition home or self-care (01) ==
PROVIDERS: PCP Internal Medicine; Visit Provider Surgery
PROC: (CPT 49587; principal; 2022-09-18 12:00)
DX: K42.0 Umbilical hernia with obstruction, without gangrene (principal); I25.10 Atherosclerotic heart disease of native coronary artery without angina pectoris; I10 Essential (primary) hypertension; E78.5 Hyperlipidemia, unspecified; K44.9 Diaphragmatic hernia without obstruction or gangrene; K80.20 Calculus of gallbladder without cholecystitis without obstruction; N20.0 Calculus of kidney; K40.90 Unilateral inguinal hernia, without obstruction or gangrene, not specified as recurrent; I71.43 Infrarenal abdominal aortic aneurysm, without rupture; Z87.891 Personal history of nicotine dependence; Z95.1 Presence of aortocoronary bypass graft
CPT/HCPCS: 49587; A9270; C1781; J0690; J1100; J1885; J2405; J2704; J3010; J7120

== ENCOUNTER 2022-10-27 00:37 | Emergency (ER) | payer MEDICARE, MEDICAID, SELFPAY ==
[2022-10-27] VITALS (26 sets, daily range): BP systolic 126–152; BP diastolic 73–86; PULSE 61–85; RESP 12–24; TEMP 36.5–36.8; O2SAT 96–100
--- NOTE | ~2022-10-27 | XR_ITS ---
XR chest 1V portable 10/27/2022 01:52 Indication: Chest pain Procedure: AP portable chest Comparison: Comparison to multiple prior studies sequentially, with oldest reviewed study dated 04/05. Findings: Status post median sternotomy for CABG. Heart size normal. Left basilar atelectasis. No foc al air space disease, pulmonary edema, pleural effusion or suspected pneumothorax. Impression: 1: Left basilar atelectasis. Reviewed, dictated and finalized at location A. [employer] MACHINE Impression: 1: Left basilar atelectasis.
--- NOTE | 2022-10-27 00:46 | ECG_ITS ---
Measurements Intervals [place] Rate: 71 P: 10 DC: 147 QRS: -20 QRSD: 104 T: 16 QT: 399 QTc: 436 Interpretive Statements SINUS RHYTHM VOLTAGE CRITERIA FOR LVH BASELINE ARTIFACT- III, V5-V6 BORDERLINE ECG COMPARED TO ECG 12/11/2021 10:35:55 NO SIGNIFICANT CHANGES Electronically Signed On 10-27-2022 8:02:55 INSTRUCTIONAL DESIGN SPECIALIST by Jose Luis Neville D.O.
[2022-10-27] MEDS: ASPIRIN 81 MG CHEWABLE TABLET 324 MG PO (01:25)
[2022-10-27 01:27] LABS: Basophils Percent Auto 0.4 % (0.2-1.2); Eosinophils Absolute Auto 0.2 K/mm3 (0-0.3); Eosinophils Percent Auto 3.1 % (0-4.4); Hematocrit 39.2 % (42.0-52.0); Hemoglobin 13.3 g/dL (14.0-18.0); Immature Granulocyte Absolute 0.02 K/mm3 (0.00-0.031); Immature Granulocyte Percent A 0.3 % (0-0.5); Lymphocytes Absolute Auto 2.99 K/mm3 (0.9-3.2); Lymphocytes Percent Auto 40.4 % (18.3-44.2); Mean Corpuscular HGB Conc 33.9 g/dl (32-36); Mean Corpuscular Hemoglobin 31.5 pg (26-34); Mean Corpuscular Volume 92.9 fl (80-100); Mean Platelet Volume 9.7 fl (7.4-10.4); Monocytes Absolute Auto 0.9 K/mm3 (0.1-0.6); Monocytes Percent Auto 12.4 % (2.6-8.5); Neutrophils Absolute Auto 3.2 K/mm3 (1.3-6.7); Neutrophils Percent Auto 43.4 % (45.5-73.1); Platelet Count Result 241 k/mm3 (150-375); Red Blood Count 4.22 M/mm3 (4.6-6.20); Red Cell Distribution Width 13.8 % (11.5-14.5); White Blood Count 7.4 K/mm3 (4.5-10.0)
--- NOTE | 2022-10-27 01:31 | PC.NURSE ---
Bedside glucose 170
[2022-10-27 01:34] LABS: Glucose Point of Care 170 mg/dl (65-105)
[2022-10-27 01:37] LABS: INR 1.1; Prothrombin Time 13.5 Seconds (11.1-14.7)
[2022-10-27 01:38] LABS: Partial Thromboplastin Time 36.5 SECONDS (22.3-36.8)
[2022-10-27 01:42] LABS: Anion Gap 7 mmol/L (8-16); Blood Urea Nitrogen 19 mg/dL (9-20); Calcium 8.9 mg/dL (8.4-10.2); Carbon Dioxide 26 mmol/L (22-30); Chloride 106 mmol/L (98-107); Estimated CRCL calculation 75 ml/min; Estimated Glomerular Filt Rate > 60; Glucose 169 mg/dL (65-110); Potassium 3.6 mmol/L (3.4-5.0); Sodium 139 mmol/L (137-145)
[2022-10-27 01:54] LABS: NT Pro B Type Natriuretic Pept 51 pg/mL (5-100); Troponin I < 0.012 ng/mL (0.000-0.034)
[2022-10-27 02:03] LABS: Influenza A QL RT-PCR Negative (Negative); Influenza B QL RT-PCR Negative (Negative); RSV RNA, RT-PCR Negative (Negative); SARS-CoV-2 RNA PCR Negative
--- NOTE | 2022-10-27 02:15 | ED.GENADULT ---
HPI - General Adult General Chief complaint: Unspecified Stated complaint: jaw pain History of Present Illness HPI narrative: Patient has severe dementia and is a poor historian. This is a 67-year-old male presenting ED with a chief complaint of jaw pain and chest pain. The jaw pain started at 11:00 p.m. tonight. His became concerned and called EMS. When EMS arrived they started to do an EKG on at that time the patient started reporting chest pain. Pain is 1/10 in intensity, it comes and goes but the patient is not currently experiencing and now. He has never experienced pain like that before and does not feel similar to previous MIs. It has improved with Tylenol and there are no exacerbating symptoms. It is not associated with vomiting, diaphoresis, radiation. Patient denies URI symptoms including cough congestion ear pain or sore throat. Related Data Home Medications Medication Instructions Recorded Confirmed amlodipine 2.5 mg tablet 2.5 mg PO DAILY 08/28/20 10/02/22 aspirin 81 mg tablet 81 mg PO DAILY 08/28/20 10/02/22 atorvastatin 80 mg tablet 80 mg PO HS 08/28/20 10/02/22 furosemide 20 mg tablet 20 mg PO DAILY 08/28/20 10/02/22 metoprolol succinate 50 mg 50 mg PO DAILY 08/28/20 10/02/22 tablet,extended release 24 hr potassium chloride 10 mEq 10 meq PO DAILY 08/28/20 10/02/22 tablet,extended release Allergies Allergy/AdvReac Type Severity Reaction Status Date / Time No Known Allergies Allergy Verified 10/02/22 09:09 [facility] Past Medical History Medical History CAD (coronary artery disease) Hyperglycemia Hyperlipidemia Hypertension Nephrolithiasis With lithotripsy Surgical History Surgical History H/O rhinoplasty History of lithotripsy Hx of umbilical hernia repair repair of incarcerated umbilical hernia with mesh 09/18/22 S/P CABG x 5 Family History Family History Mother Heart disease Aspiration pneumonia Ovarian cancer Hypertension Father Heart disease Social History Social History Social History: The patient lives with his and has 4 children. His is a durable power collections attorney for healthcare. The patient said that when he was the young man he was a hip be in use various drugs but not since then. He used to smoke cigarettes before he his . 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 No alcohol marijuana or illicit drugs at this time. But he did experiment with drugs as a young man. He desires to be a full code. Smoking packs per day: 1 Smoking cigarettes per day: 20.0 Years smoked: 9 Smoking pack-years: 9.00 Smoking status: Former smoker Tobacco type: cigarettes Second hand tobacco smoke exposure: No Additional smoking assessment comments: QUIT 1977 Alcohol intake: never Substance use: never Substance use type: does not use Lack of Transportation: No Lack of Food: Sometimes True Current Housing: I Have Housing Concerned About Future Housing: No Difficulty Paying Gas/Electric Bills: No Difficulty Paying for Meds: No Currently Unemployed: No Education: High School Diploma/GED Difficulty w/ Childcare or Family Care: No Gender identity (if verbalized by the patient): Male Spiritual care concerns: No Exam Narrative: APPEARANCE: No apparent distress. Patient is A&O x1. He is pleasant and polite. Head: atraumatic. EYES: EOMI, NOSE: Atraumatic NECK: Patient has a swollen tender lymph node in the left side of the submandibular region. He is holding his hand to this area RESPIRATORY: No increased rate of breathing, clear to auscultation bilaterally CARDIOVASCULAR: RRR, no peripheral edema ABDOMINAL: Non-distended MUSCULOSKELETAl: No obvious deformities NEURO: Alert. Moving 4/4 extremities SKIN:
[2022-10-27 04:30] LABS: Troponin I < 0.012 ng/mL (0.000-0.034)
== END 2022-10-27 05:13 | disposition home or self-care (01) ==
PROVIDERS: Emergency Provider Emergency Medicine; PCP Internal Medicine
DX: R59.1 Generalized enlarged lymph nodes (principal); I25.10 Atherosclerotic heart disease of native coronary artery without angina pectoris; F03.C0 Unspecified dementia, severe, without behavioral disturbance, psychotic disturbance, mood disturbance, and anxiety; R07.9 Chest pain, unspecified; Z20.822 Contact with and (suspected) exposure to COVID-19; E78.5 Hyperlipidemia, unspecified; I10 Essential (primary) hypertension; Z87.442 Personal history of urinary calculi; Z95.1 Presence of aortocoronary bypass graft; Z87.891 Personal history of nicotine dependence; Z79.82 Long term (current) use of aspirin
CPT/HCPCS: 36415; 71045; 80048; 82948; 83735; 83880; 84484; 85025; 85610; 85730; 87637; 93005; 99284; A9270

== ENCOUNTER 2022-10-27 09:30 | Emergency (ER) | payer MEDICARE, MEDICAID, SELFPAY ==
--- NOTE | ~2022-10-27 | CT_ITS ---
EXAMINATION: CT abdomen pelvis wo con DATE: 10/27/2022 11:25 INDICATION: Left lower quadrant pain. Possible kidney stone. TECHNIQUE: Computed tomography (CT) of the abdomen and pelvis was performed without intravenous contr ast. The dose-length product was 417.95 mGy-cm. Automated exposure control and iterative reconstructi on technique were employed. COMPARISON: Comparison to multiple prior studies sequentially, with oldest reviewed study dated 06/06. . FINDINGS: Stable 4 mm right lower lobe nodule, benign. Otherwise, lung bases are unremarkable. Heart size normal. No significant pleural or pericardial effusion. Gallstones. Small hiatal hernia. There are calcified granulomas of the spleen. The pancreas, adrenal glands are unremarkable. There are nonobstructing bilateral renal stones. Ureters are normal in cours e and caliber without hydronephrosis or ureteral stone. Nonobstructive bowel gas pattern. Colonic div erticulosis without evidence for diverticulitis. Bladder wall is mildly thickened. Enlarged prostate gland. No abnormal pelvic masses or fluid collections. No significant change to 3.2 cm infrarenal abd ominal aortic aneurysm. There is atherosclerosis of the aorta with mild stenosis at the origin of the renal arteries bilaterally. No free air or free fluid. Normal appendix. Mild lumbar spondylosis. Rig ht inguinal hernia containing fat. IMPRESSION: 1. No acute abdominal abnormality. 2: Mild bladder wall thickening which may be due to outlet obstruction from enlarged prostate gland a nd/or cystitis. 3: Cholelithiasis. 4: Nonobstructing bilateral nephrolithiasis. No ureteral stone or hydronephrosis. 5: Stable 3.2 cm infrarenal abdominal aortic aneurysm. Reviewed, dictated and finalized at location A. [employer]ATE COMMUNICATIONS SPECIALIST IMPRESSION: 1. No acute abdominal abnormality. 2: Mild bladder wall thickening which may be due to outlet obstruction from enl arged prostate gland and/or cystitis. 3: Cholelithiasis. 4: Nonobstructing bilateral nephrolithiasis. No ureteral stone or hydronephros is. 5: Stable 3.2 cm infrarenal abdominal aortic aneurysm.
[2022-10-27 09:37] VITALS: BP 160/86; PULSE 94; RESP 16; TEMP 36.6; O2SAT 98
[2022-10-27 10:30] LABS: Basophils Percent Auto 0.5 % (0.2-1.2); Eosinophils Absolute Auto 0.1 K/mm3 (0-0.3); Eosinophils Percent Auto 2.1 % (0-4.4); Hematocrit 43.6 % (42.0-52.0); Hemoglobin 14.6 g/dL (14.0-18.0); Immature Granulocyte Absolute 0.02 K/mm3 (0.00-0.031); Immature Granulocyte Percent A 0.3 % (0-0.5); Lymphocytes Absolute Auto 1.88 K/mm3 (0.9-3.2); Lymphocytes Percent Auto 28.4 % (18.3-44.2); Mean Corpuscular HGB Conc 33.5 g/dl (32-36); Mean Corpuscular Hemoglobin 31.4 pg (26-34); Mean Corpuscular Volume 93.8 fl (80-100); Mean Platelet Volume 9.4 fl (7.4-10.4); Monocytes Absolute Auto 0.7 K/mm3 (0.1-0.6); Monocytes Percent Auto 10.4 % (2.6-8.5); Neutrophils Absolute Auto 3.9 K/mm3 (1.3-6.7); Neutrophils Percent Auto 58.3 % (45.5-73.1); Platelet Count Result 236 k/mm3 (150-375); Red Blood Count 4.65 M/mm3 (4.6-6.20); Red Cell Distribution Width 13.7 % (11.5-14.5); White Blood Count 6.6 K/mm3 (4.5-10.0)
[2022-10-27 10:33] LABS: Add Urine Microscopic? YES; Appearance Urine Clear (Clear); Bilirubin Urine Negative (Negative); Blood Urine 2+ (Negative); Color Urine Yellow (Yellow); Glucose Urine UA 1+ mg/dL (Negative); Ketones Urine Negative (Negative); Leukocyte Esterase Ur Negative LEU/UL (Negative); Nitrate Urine Negative (Negative); Protein Urine Negative (Negative); Urobilinogen Urine 0.2 mg/dL (<2.0)
[2022-10-27 10:40] LABS: Mucus Urine Rare /lpf; WBC Urine 0-3 /hpf
[2022-10-27 10:40] LABS: Alanine Aminotransferase 35 U/L (6-50); Albumin Level 4.2 g/dL (3.5-5.1); Alkaline Phosphatase 87 U/L (38-126); Anion Gap 6 mmol/L (8-16); Aspartate Amino Transferase 31 U/L (17-59); Bilirubin,Total 1.1 mg/dL (0.2-1.3); Blood Urea Nitrogen 16 mg/dL (9-20); Calcium 9.2 mg/dL (8.4-10.2); Carbon Dioxide 27 mmol/L (22-30); Chloride 108 mmol/L (98-107); Estimated CRCL calculation 75 ml/min; Estimated Glomerular Filt Rate > 60; Glucose 151 mg/dL (65-110); Lipase 108 U/L (23-300); Sodium 141 mmol/L (137-145)
--- NOTE | 2022-10-27 11:19 | ED.ABDPAIN ---
HPI - Abdominal Pain General Chief Complaint: Abdominal Pain Stated Complaint: pain Time Seen by Provider: 10/27/22 09:49 Source: patient, family, RN notes reviewed and old records reviewed Mode of arrival: ambulatory Limitations: dementia History of Present Illness HPI narrative: This is a 67 year old male with history of dementia who presents for evaluation of abdominal pain. Patient is not sure why he is here due to dementia so his is giving history. She states patient was seen at [facility] several hours ago for evaluation of jaw pain. He had unremarkable cardiac evaluation in ER so he was going to follow up with house servant as outpatient. His states that after few hours of being at home, patient complained of left lower abdominal. She is unsure if patient is really having pain or if he is just confused but she wanted to get him assessed. Patient states he did have left lower abdominal pain now but he denies having pain now. Denies nausea, vomiting, fever, chills, or difficulty urinating. HE has not taken anything for pain since being discharged this morning. His family reports over 1 month ago he had umbilical hernia repair and he has been cleared by surgery. They also reports patient has AAA. Related Data Home Medications Medication Instructions Recorded Confirmed amlodipine 2.5 mg tablet 2.5 mg PO DAILY 08/28/20 10/02/22 aspirin 81 mg tablet 81 mg PO DAILY 08/28/20 10/02/22 atorvastatin 80 mg tablet 80 mg PO HS 08/28/20 10/02/22 furosemide 20 mg tablet 20 mg PO DAILY 08/28/20 10/02/22 metoprolol succinate 50 mg 50 mg PO DAILY 08/28/20 10/02/22 tablet,extended release 24 hr potassium chloride 10 mEq 10 meq PO DAILY 08/28/20 10/02/22 tablet,extended release Allergies Allergy/AdvReac Type Severity Reaction Status Date / Time No Known Allergies Allergy Verified 10/27/22 10:12 Review of Systems Constitutional: Constitutional: Denies weakness Cardiovascular: Cardiovascular: Denies syncope, Denies rapid heart rate, Denies irregular heart rhythm, Denies leg edema and Denies dyspnea Respiratory: Respiratory: Denies chest congestion, Denies hemoptysis, Denies excessive phlegm production and Denies dyspnea Gastrointestinal: Gastrointestinal: Reports abdominal pain, Denies hematochezia, Denies diarrhea and Denies vomiting Genitourinary: Genitourinary: Denies hematuria, Denies dysuria, Denies penile discharge and Denies testicular pain Musculoskeletal: Musculoskeletal: Denies joint swelling, Denies loss of height and Denies muscle weakness Neurologic: Denies syncope, Denies focal weakness and Denies weakness PMFSH Past Medical History Medical History CAD (coronary artery disease) Hyperglycemia Hyperlipidemia Hypertension Nephrolithiasis With lithotripsy Surgical History Surgical History H/O rhinoplasty History of lithotripsy Hx of umbilical hernia repair repair of incarcerated umbilical hernia with mesh 09/18/22 S/P CABG x 5 Family History Family History Mother Heart disease Aspiration pneumonia Ovarian cancer Hypertension Father Heart disease Social History Social History Social History: The patient lives with his and has 4 children. His is a durable power business attorney for healthcare. The patient said that when he was the young man he was a hip be in use various drugs but not since then. He used to smoke cigarettes before he his . 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 No alcohol marijuana or illicit drugs at this time. But he did experiment with drugs as a young man. He desires to be a full code. Smoking packs per day: 1 Smoking cigarettes per day: 20.0 Years smoked: 9 Smoking pack-years: 9.00 Smoking status: Former smoker Tobacco t
[2022-10-27 14:06] VITALS: BP 158/84; PULSE 90; RESP 16; TEMP 36.6; O2SAT 99
== END 2022-10-27 14:07 | disposition home or self-care (01) ==
PROVIDERS: Emergency Provider General Practice; PCP Internal Medicine
DX: R10.32 Left lower quadrant pain (principal); F03.90 Unspecified dementia, unspecified severity, without behavioral disturbance, psychotic disturbance, mood disturbance, and anxiety; I25.10 Atherosclerotic heart disease of native coronary artery without angina pectoris; E78.5 Hyperlipidemia, unspecified; I10 Essential (primary) hypertension; Z95.1 Presence of aortocoronary bypass graft; Z87.442 Personal history of urinary calculi; Z87.891 Personal history of nicotine dependence; Z79.82 Long term (current) use of aspirin; K80.20 Calculus of gallbladder without cholecystitis without obstruction; N20.0 Calculus of kidney; I71.43 Infrarenal abdominal aortic aneurysm, without rupture; R93.41 Abnormal radiologic findings on diagnostic imaging of renal pelvis, ureter, or bladder
CPT/HCPCS: 36415; 74176; 80053; 81001; 83690; 85025; 96374; 99284; J0131

== ENCOUNTER 2023-01-03 09:56 | Emergency (ER) | payer MEDICARE, MEDICAID, SELFPAY ==
--- NOTE | ~2023-01-03 | CT_ITS ---
EXAMINATION: CT abdomen pelvis w con DATE: 01/03/2023 12:55 INDICATION: Low abdominal pain. TECHNIQUE: Computed tomography (CT) of the abdomen and pelvis was performed with 100 mL Omnipaque 350 intravenous contrast. Automated exposure control and iterative reconstruction technique were employe d. The dose-length product was 462.59 mGy-cm. COMPARISON: CT abdomen and pelvis 10/27/2022 FINDINGS: The visualized portions of the lung bases demonstrate mild atelectasis. There is a 4 mm nod ule in right lower lobe, likely benign. No pleural effusion. The heart size is normal. There are julio césar nary artery calcifications. No pericardial effusion. There is a small sliding hiatal hernia. The live r is normal. There is a gallstone in the gallbladder, which is normal in size. Calcifications in the spleen are consistent with old granulomatous disease. The pancreas and adrenal glands are normal. The re is cortical thinning of the kidneys. There are cysts in left kidney measuring up to 8 mm. There ar e 3 stones in right kidney measuring up to 3 mm. There are 6 stones in left kidney measuring up to 4 mm. The prostate is mildly enlarged. There are likely changes of umbilical hernia repair. Again seen is an old focus of fat necrosis adjacent to the sigmoid colon. There is diverticulosis of the colon w ithout evidence of diverticulitis. The appendix is normal. There is a 3.2 cm fusiform aneurysm of inf rarenal aorta. There is calcified atherosclerosis of the aorta and many of the other arteries. There are no pathologically enlarged lymph nodes. There is no free intraperitoneal fluid. There is mild lum bar spondylosis. IMPRESSION: 1. Small sliding hiatal hernia. 2. Stable 3.2 cm fusiform aneurysm of infrarenal aorta. 3. Cholelithiasis. 4. Bilateral nonobstructing kidney stones. Reviewed, dictated and finalized at location A.
[2023-01-03 10:15] VITALS: BP 120/84; PULSE 88; RESP 17; TEMP 36.6; O2SAT 97
[2023-01-03 10:18] LABS: Basophils Percent Auto 0.5 % (0.2-1.2); Eosinophils Absolute Auto 0.2 K/mm3 (0-0.3); Eosinophils Percent Auto 2.2 % (0-4.4); Hemoglobin 15.3 g/dL (14.0-18.0); Immature Granulocyte Absolute 0.03 K/mm3 (0.00-0.031); Immature Granulocyte Percent A 0.4 % (0-0.5); Lymphocytes Absolute Auto 2.34 K/mm3 (0.9-3.2); Lymphocytes Percent Auto 30.8 % (18.3-44.2); Mean Corpuscular HGB Conc 33.3 g/dl (32-36); Mean Corpuscular Hemoglobin 31.2 pg (26-34); Mean Corpuscular Volume 93.9 fl (80-100); Monocytes Absolute Auto 0.7 K/mm3 (0.1-0.6); Monocytes Percent Auto 9.2 % (2.6-8.5); Neutrophils Absolute Auto 4.3 K/mm3 (1.3-6.7); Neutrophils Percent Auto 56.9 % (45.5-73.1); Platelet Count Result 245 k/mm3 (150-375); Red Cell Distribution Width 13.3 % (11.5-14.5); White Blood Count 7.6 K/mm3 (4.5-10.0)
[2023-01-03 10:27] LABS: Appearance Urine Clear (Clear); Bacteria Urine None Seen /hpf; Bilirubin Urine Negative (Negative); Blood Urine 1+ (Negative); Color Urine Yellow (Yellow); Glucose Urine UA 1+ mg/dL (Negative); Ketones Urine Negative (Negative); Leukocyte Esterase Ur Negative LEU/UL (Negative); Nitrate Urine Negative (Negative); Non Pathogenic Casts 0-2; Protein Urine Negative (Negative); Specific Grav Ur 1.019 (1.001-1.035); Squamous Epithelial Cell Urine None seen /hpf (Few); Urobilinogen Urine 0.2 mg/dL (<2.0); WBC Urine 0-5 /hpf; pH Urine 5.5 (5.0-9.0)
[2023-01-03 10:29] LABS: Alanine Aminotransferase 36 U/L (6-50); Albumin Level 4.5 g/dL (3.5-5.1); Alkaline Phosphatase 95 U/L (38-126); Anion Gap 7 mmol/L (8-16); Aspartate Amino Transferase 33 U/L (17-59); Bilirubin,Total 1.4 mg/dL (0.2-1.3); Blood Urea Nitrogen 20 mg/dL (9-20); Calcium 9.7 mg/dL (8.4-10.2); Carbon Dioxide 28 mmol/L (22-30); Chloride 105 mmol/L (98-107); Estimated CRCL calculation 62 ml/min; Estimated Glomerular Filt Rate > 60; Glucose 160 mg/dL (65-110); Lipase 81 U/L (23-300); Potassium 4.4 mmol/L (3.4-5.0); Sodium 140 mmol/L (137-145)
[2023-01-03 11:15] LABS: Add Urine Microscopic? YES
[2023-01-03] MEDS: SODIUM CHLORIDE 0.9% IV 1,000 ML 999 ML IV CONT (12:21)
[2023-01-03] MEDS: MORPHINE SULFATE (*CRX) 2 MG/ML INJ IV PUSH (12:42)
[2023-01-03] MEDS: DICYCLOMINE HCL INJ 20 MG/2 ML VIAL IM (13:38)
[2023-01-03 14:42] LABS: Lactic Acid Reflex 0.8 mmol/L (0.7-2.0)
--- NOTE | 2023-01-03 15:41 | ED.ABDPAIN ---
HPI - Abdominal Pain General Chief Complaint: Abdominal Pain Stated Complaint: abdominal pain Time Seen by Provider: 01/03/23 10:56 Source: RN notes reviewed History of Present Illness HPI narrative: Patient presents emergency department from home for abdominal pain. Abdominal pain began this morning per the patient as well as history is per the patient's as the patient does have a history of dementia. Per the the patient has been having some intermittent pain that he notes in the lower abdomen starting this morning. The pain will come and go on the patient. The patient has had no fevers or chills patient denies any nausea vomiting or diarrhea. Denies having any pain medication at home. States that nothing makes the symptoms better or worse Related Data Home Medications Medication Instructions Recorded Confirmed amlodipine 2.5 mg tablet 2.5 mg PO DAILY 08/28/20 10/31/22 aspirin 81 mg tablet 81 mg PO DAILY 08/28/20 10/31/22 atorvastatin 80 mg tablet 80 mg PO HS 08/28/20 10/31/22 furosemide 20 mg tablet 20 mg PO DAILY 08/28/20 10/31/22 metoprolol succinate 50 mg 50 mg PO DAILY 08/28/20 10/31/22 tablet,extended release 24 hr potassium chloride 10 mEq 10 meq PO DAILY 08/28/20 10/31/22 tablet,extended release Allergies Allergy/AdvReac Type Severity Reaction Status Date / Time No Known Allergies Allergy Verified 01/03/23 09:56 Review of Systems Review of Systems: Gen.: Denies fevers or chills ENT: Denies congestion Respiratory: Denies shortness of breath or cough CV: Denies chest pain or palpitations GI: See HPI denies burning, urgency, frequency or hematuria Musculoskeletal: Denies back pain or muscle pain Neuro: Denies numbness, tingling, weakness or focal weakness Skin: Denies rash Except as documented, all other systems reviewed and negative PMF Past Medical History Medical History CAD (coronary artery disease) Hyperglycemia Hyperlipidemia Hypertension Nephrolithiasis With lithotripsy Surgical History Surgical History H/O rhinoplasty History of lithotripsy Hx of umbilical hernia repair repair of incarcerated umbilical hernia with mesh 09/18/22 S/P CABG x 5 Family History Family History Mother Heart disease Aspiration pneumonia Ovarian cancer Hypertension Father Heart disease Social History Social History Social History: The patient lives with his and has 4 children. His is a durable power commercial attorney for healthcare. The patient said that when he was the young man he was a hip be in use various drugs but not since then. He used to smoke cigarettes before he his . 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 No alcohol marijuana or illicit drugs at this time. But he did experiment with drugs as a young man. He desires to be a full code. Smoking packs per day: 1 Smoking cigarettes per day: 20.0 Years smoked: 9 Smoking pack-years: 9.00 Smoking status: Former smoker Tobacco type: cigarettes Second hand tobacco smoke exposure: No Additional smoking assessment comments: QUIT 1977 Alcohol intake: never Substance use: never Substance use type: does not use Lack of Transportation: No Lack of Food: Sometimes True Current Housing: I Have Housing Concerned About Future Housing: No Difficulty Paying Gas/Electric Bills: No Difficulty Paying for Meds: No Currently Unemployed: No Education: High School Diploma/GED Difficulty w/ Childcare or Family Care: No Living arrangements: with family Occupation/Education: retired Gender identity (if verbalized by the patient): Male Spiritual care concerns: No Exam Narrative: APPEARANCE: No acute distress, nontoxic, resting in bed EYES: EOMI HEENT: N
== END 2023-01-03 16:30 | disposition home or self-care (01) ==
PROVIDERS: Emergency Provider Emergency Medicine; PCP Internal Medicine
DX: R10.30 Lower abdominal pain, unspecified (principal); I25.10 Atherosclerotic heart disease of native coronary artery without angina pectoris; E78.5 Hyperlipidemia, unspecified; I10 Essential (primary) hypertension; F03.90 Unspecified dementia, unspecified severity, without behavioral disturbance, psychotic disturbance, mood disturbance, and anxiety; Z87.442 Personal history of urinary calculi; Z95.1 Presence of aortocoronary bypass graft; Z87.891 Personal history of nicotine dependence; K44.9 Diaphragmatic hernia without obstruction or gangrene; I71.9 Aortic aneurysm of unspecified site, without rupture; K80.20 Calculus of gallbladder without cholecystitis without obstruction; N20.0 Calculus of kidney
CPT/HCPCS: 36415; 74177; 80053; 81001; 83605; 83690; 85025; 96361; 96372; 96374; 96375; 99284; J0131; J0500; J2270; J7030; Q9967

== ENCOUNTER 2024-01-11 07:50 | Emergency (ER) | payer MEDICARE, MEDICAID, SELFPAY ==
--- NOTE | ~2024-01-11 | XR_ITS ---
XR chest 1V 01/11/2024 08:46 Indication: Trauma. Status post fall. Procedure: AP view of the chest Comparison: Comparison to multiple prior studies sequentially, with oldest reviewed study dated 06/2020. Findings: Status post median sternotomy for CABG. Developing bibasilar airspace disease. No significa nt effusion. No pneumothorax. No acute osseous abnormality. Impression: 1: Developing bibasilar airspace disease may represent atelectasis or pneumonia. Reviewed, dictated and finalized at location A. Impression: 1: Developing bibasilar airspace disease may represent atelectasis or pneumonia .
--- NOTE | ~2024-01-11 | CT_ITS ---
EXAMINATION: CT cervical spine wo con DATE: 01/11/2024 08:40 INDICATION: Neck pain after trauma TECHNIQUE: Computed tomography (CT) of the cervical spine was performed without intravenous contrast. The dose-length product was 292 mGy-cm. COMPARISON: CT dated 08/29/2020 FINDINGS: There is carotid atherosclerosis. Normal cervical lordosis. There is disc narrowing and end plate hypertrophy at C5-6 and C6-7. There is degenerative anterolisthesis at C4-5. There is multileve l uncinate and facet hypertrophy. There is emphysema. No paraspinal soft tissue abnormality. No acute fracture or traumatic malalignment. No evidence for perched facet. Craniovertebral junction is lola l. Spinous processes are normal. IMPRESSION: 1. No acute abnormality of the cervical spine. Reviewed, dictated and finalized at location A.
--- NOTE | ~2024-01-11 | CT_ITS ---
EXAMINATION: CT BRAIN W/O DATE: 01/11/2024 08:40 INDICATION: Trauma. Head injury. TECHNIQUE: Computed tomography (CT) of the head was performed without intravenous contrast. The dose- length product was 605.33 mGy-cm. Automated exposure control and iterative reconstruction technique w ere employed. COMPARISON: MRI brain dated 05/14/[address] dated 12/30/2014 FINDINGS: There is generalized brain parenchymal atrophy. There are scattered moderate periventricula r and subcortical white matter changes, most likely related to small vessel ischemic disease (microan giopathy). There is intracranial atherosclerosis. No ventriculomegaly or midline shift. Midline sagittal images demonstrate a normal corpus callosum, c raniovertebral junction and sella turcica. Basilar cisterns are patent. Paranasal sinuses and mastoids are pneumatized. No depressed skull fractures. IMPRESSION: 1. No acute intracranial abnormality. 2: Chronic age-related findings. Reviewed, dictated and finalized at location A.
--- NOTE | ~2024-01-11 | XR_ITS ---
XR pelvis 1-2V 01/11/2024 08:46 Indication: Pelvic pain after trauma. Dementia. Procedure: AP pelvis Comparison: No prior studies for comparison. Findings: Pelvic rings are intact. There is osteoarthritis of the hips. Sacral foramen are symmetric. No foreign bodies are identified. No fracture or traumatic malalignment. Impression: 1: Mild osteoarthritis of the hips. Reviewed, dictated and finalized at location A. Impression: 1: Mild osteoarthritis of the hips.
[2024-01-11 07:46] VITALS: BP 132/78; PULSE 85; RESP 16; TEMP 37.1; O2SAT 94
--- NOTE | 2024-01-11 08:26 | ED.FALL ---
HPI - Fall General Chief Complaint: Fall Stated Complaint: fall Source: patient and EMS Mode of arrival: EMS Limitations: dementia History of Present Illness HPI Narrative: 68-year-old male with history of dementia presenting after a fall. He was getting out of bed when he tripped and fell and struck his head on the ground. No loss of consciousness. Family was very. Brought in for evaluation. Reportedly no blood thinners. Patient has no complaints at all. Related Data Home Medications Medication Instructions Recorded Confirmed amlodipine 2.5 mg tablet 2.5 mg PO DAILY 08/28/20 10/31/22 aspirin 81 mg tablet 81 mg PO DAILY 08/28/20 10/31/22 atorvastatin 80 mg tablet 80 mg PO HS 08/28/20 10/31/22 furosemide 20 mg tablet 20 mg PO DAILY 08/28/20 10/31/22 metoprolol succinate 50 mg 50 mg PO DAILY 08/28/20 10/31/22 tablet,extended release 24 hr potassium chloride 10 mEq 10 meq PO DAILY 08/28/20 10/31/22 tablet,extended release Allergies Allergy/AdvReac Type Severity Reaction Status Date / Time No Known Allergies Allergy Verified 01/03/23 09:56 Review of Systems Review of Systems: All systems reviewed & are unremarkable except as noted in HPI and below PMFSH Past Medical History Medical History CAD (coronary artery disease) Hyperglycemia Hyperlipidemia Hypertension Nephrolithiasis With lithotripsy Surgical History Surgical History H/O rhinoplasty History of lithotripsy Hx of umbilical hernia repair repair of incarcerated umbilical hernia with mesh 09/18/22 S/P CABG x 5 Family History Family History Mother Heart disease Aspiration pneumonia Ovarian cancer Hypertension Father Heart disease Social History Social History Social History: The patient lives with his and has 4 children. His is a durable power insurance attorney for healthcare. The patient said that when he was the young man he was a hip be in use various drugs but not since then. He used to smoke cigarettes before he his . 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 No alcohol marijuana or illicit drugs at this time. But he did experiment with drugs as a young man. He desires to be a full code. Smoking packs per day: 1 Smoking cigarettes per day: 20.0 Years smoked: 9 Smoking pack-years: 9.00 Smoking status: Former smoker Tobacco type: cigarettes Second hand tobacco smoke exposure: No Additional smoking assessment comments: QUIT 1978 Alcohol intake: never Substance use: never Substance use type: does not use Lack of Transportation: No Lack of Food: Sometimes True Current Housing: I Have Housing Concerned About Future Housing: No Difficulty Paying Gas/Electric Bills: No Difficulty Paying for Meds: No Currently Unemployed: No Education: High School Diploma/GED Difficulty w/ Childcare or Family Care: No Living arrangements: with family Occupation/Education: retired Gender identity (if verbalized by the patient): Male Spiritual care concerns: No Exam Narrative: Constitutional: Generally well appearing, no acute distress Head: Atraumatic, no deformities. Eyes: Pupils equal, round, and reactive to light. Neck: Supple, no tracheal deviation, no JVD. ENMT: Mucous membranes moist Cardiovascular: S1, S2 auscultated. No murmurs, rubs, or gallops. No S3/S4. Normal Distal pulses. No peripheral edema. Respiratory: Lung sounds equal. No wheezes, rales, or rhonchi. Gastrointestinal: Abdomen was soft and non-tender. Non-distended. No rebound or guarding. Genitourinary: Deferred Musculoskeletal: Normal muscle tone and bulk. No obvious deformities or tenderness over extremities. Pelvis is stable. No midline spine tenderness. No step-off or deformity.
== END 2024-01-11 09:29 | disposition home or self-care (01) ==
LOC: ANHED 09:06
PROVIDERS: Emergency Provider Emergency Medicine; PCP Internal Medicine
DX: S09.90XA Unspecified injury of head, initial encounter (principal); F03.90 Unspecified dementia, unspecified severity, without behavioral disturbance, psychotic disturbance, mood disturbance, and anxiety; I25.10 Atherosclerotic heart disease of native coronary artery without angina pectoris; I10 Essential (primary) hypertension; E78.5 Hyperlipidemia, unspecified; Z95.1 Presence of aortocoronary bypass graft; Z87.442 Personal history of urinary calculi; Z87.891 Personal history of nicotine dependence; R91.8 Other nonspecific abnormal finding of lung field; M16.0 Bilateral primary osteoarthritis of hip; W01.0XXA Fall on same level from slipping, tripping and stumbling without subsequent striking against object, initial encounter
CPT/HCPCS: 70450; 71045; 72125; 72170; 99284

== ENCOUNTER 2024-04-14 12:15 | Emergency (ER) | payer MEDICARE, MEDICAID, SELFPAY ==
[2024-04-14] VITALS (11 sets, daily range): BP systolic 123–144; BP diastolic 72–83; PULSE 47–62; RESP 12–18; TEMP 36.4–36.8; O2SAT 95–99
--- NOTE | ~2024-04-14 | CT_ITS ---
EXAMINATION: CTA chest PE abdomen pel DATE: 04/14/2024 16:35 INDICATION: CP, abd pain, elevated dimer, thoracic spine fx TECHNIQUE: Computed tomography angiography (CTA) of the chest was performed with 100 mL Omnipaque-350 intravenous contrast timed to evaluate the pulmonary arteries, followed by portal venous phase imagi ng of the abdomen and pelvis. Coronal maximum intensity projection 3D-reconstructions were created by the technologist. The dose-length product (DLP) was 955.61 mGy-cm. Automated exposure control and it erative reconstruction technique were employed. COMPARISON: X-ray chest same date and 01/11/2024; CT abdomen pelvis 01/03/2023. FINDINGS: CHEST: Lung parenchyma and airways: Clear, within the limits imposed by motion artifact. Pleura: Unremarkable. Thoracic inlet, axillae and chest wall: No thyroid or soft tissue mass. Sternotomy wires. Thoracic aorta: No significant dilation. No dissection. Mediastinum: Normal. Heart and pericardium: Normal. Coronary artery calcifications: Moderate. Thoracic bones: Moderate burst fracture at T12 with 2 mm retropulsion. Pulmonary arteries: Study quality: Limited by motion artifact such that segmental and subsegmental em boli could be missed. No acute central pulmonary emboli detected. ABDOMEN/PELVIS: Liver: Normal. Biliary/Gallbladder: Cholelithiasis. No inflammatory change. No bile duct dilation. Pancreas: No mass or duct dilation. Spleen: Normal. Adrenals:No mass. Kidneys: No suspicious mass. 6 mm calcification at the right UPJ. No hydronephrosis. Multiple nonobst ructing bilateral renal stones. Simple left midpole cyst. Multiple bilateral subcentimeter hypodensit ies, too small to characterize but most likely represent cysts. GI tract: Small hiatal hernia. Mild distal esophageal and gastric wall edema. No small or large bowel dilation. Normal appendix. Diverticulosis without diverticulitis. Mesentery/Peritoneum: No ascites, mass, or free air. Retroperitoneum: No mass. Atherosclerotic abdominal aortic and/or arterial calcifications. 3.4 cm fus iform infrarenal abdominal aortic aneurysm. Pelvis: Prostatomegaly. Partially distended urinary bladder with moderate wall thickening. Soft Tissues: Soft tissues and body wall unremarkable. Abdominopelvic bones: No acute osseous finding. Stable grade 1 L4-5 anterolisthesis. IMPRESSION: Motion limited study which prevents adequate evaluation of the segmental and subsegmental pulmonary a rteries. No CT evidence of acute central pulmonary embolus. No acute process detected in the chest. Mild esophagitis/gastritis. 6 mm right UPJ stone, without significant hydronephrosis. 3.4 cm fusiform infrarenal abdominal aortic aneurysm. Recommend follow-up abdominal aortic ultrasound in 3 years. Cystitis versus bladder wall thickening from outlet obstruction. Correlate with urinalysis. Moderate, likely subacute/chronic T12 burst fracture with 2 mm retropulsion, probably present in the comparison radiograph of 01/11/2024, new since the comparison CT of 01/03/2023. Reviewed, dictated and finalized at location K. IMPRESSION: Motion limited study which prevents adequate evaluation of the segmental and connor bsegmental pulmonary arteries. No CT evidence of acute central pulmonary embolu s. No acute process detected in the chest. Mild esophagitis/gastritis. 6 mm right UPJ stone, without significant hydronephrosis. 3.4 cm fusiform infrarenal abdominal aortic aneurysm. Recommend follow-up abdom inal aortic ultrasound in 3 years. Cystitis versus bladder wall thickening from outlet obstruction. Correlate with urinalysis. Moderate, likely subacute/chronic T12 burst fracture with 2 mm retropulsion, pr obably present in the david
--- NOTE | ~2024-04-14 | XR_ITS ---
XR chest 2V Ordering provider: Caleb Wilde History: 68 years Male with . chest pain . Comparison: None. FINDINGS: MEDIASTINUM: The cardiac silhouette is not enlarged. Poststernotomy changes. LUNGS: No infiltrates, effusions or pneumothorax. Humping of the right hemidiaphragm versus atelectat ic changes in the right lung base are noted. Underlying emphysematous changes. OTHER: No free air under the diaphragm. Degenerative changes of the spine. Compression fracture of the last thoracic vertebra most likely acu te. IMPRESSION: Humping of the right hemidiaphragm versus atelectatic changes in the right lung base are noted. Under lying emphysematous changes. fracture of the last thoracic vertebra most likely acute. Reviewed, dictated and finalized at location A. IMPRESSION: Humping of the right hemidiaphragm versus atelectatic changes in the right lung base are noted. Underlying emphysematous changes. fracture of the last thoracic vertebra most likely acute.
--- NOTE | ~2024-04-14 | XR_ITS ---
EXAM: XR abdomen/kub 1V DATE: 04/14/2024 17:25 HISTORY: kidney stone . COMPARISON: 06/27/2017; CTPA abdomen pelvis 04/14/2024. FINDINGS: Clear lung bases. Normal bowel gas pattern. No organomegaly. Gallstone. Excreted contrast in the collecting systems. 6 mm density in the right mid ureter adjacent to the L3-4 disc space. Dege nerative changes in the spine. IMPRESSION: 6 mm right proximal ureteral renal stone. Reviewed, dictated and finalized at location K.
--- NOTE | 2024-04-14 12:16 | ECG_ITS ---
Test Date: 2024-04-14 12:22:21 Measurements Intervals [place] Rate: 62 P: 31 [place]: 148 QRS: -4 QRSD: 107 T: 38 QT: 393 QTc: 402 Interpretive Statements SINUS RHYTHM NONSPECIFIC T-WAVE ABNORMALITY No previous ECG available for comparison Electronically Signed On 04-14-2024 13:10:53 CDT by Gerald Bazan M.D.
[2024-04-14 12:54] LABS: INR 1.1; Prothrombin Time 14.9 Seconds (11.1-14.7)
[2024-04-14 12:58] LABS: Alanine Aminotransferase 22 U/L (6-50); Albumin Level 4.1 g/dL (3.5-5.1); Alkaline Phosphatase 76 U/L (38-126); Anion Gap 6 mmol/L (4-12); Aspartate Amino Transferase 26 U/L (17-59); Bilirubin,Total 0.9 mg/dL (0.2-1.3); Blood Urea Nitrogen 18 mg/dL (9-20); Calcium 9.3 mg/dL (8.4-10.2); Carbon Dioxide 29 mmol/L (22-30); Chloride 111 mmol/L (98-107); Estimated CRCL calculation 56 ml/min; Estimated Glomerular Filt Rate 60; Glucose 118 mg/dL (65-110); Lipase 58 U/L (23-300); Potassium 3.7 mmol/L (3.4-5.0); Sodium 146 mmol/L (137-145)
[2024-04-14 13:00] LABS: Basophils Percent Auto 0.5 % (0.2-1.2); Eosinophils Absolute Auto 0.2 K/mm3 (0-0.3); Eosinophils Percent Auto 2.9 % (0-4.4); Hematocrit 43.2 % (42.0-52.0); Hemoglobin 14.1 g/dL (14.0-18.0); Immature Granulocyte Absolute 0.02 K/mm3 (0.00-0.031); Immature Granulocyte Percent A 0.3 % (0-0.5); Lymphocytes Absolute Auto 2.47 K/mm3 (0.9-3.2); Lymphocytes Percent Auto 33.9 % (18.3-44.2); Mean Corpuscular HGB Conc 32.6 g/dl (32-36); Mean Corpuscular Hemoglobin 30.8 pg (26-34); Mean Corpuscular Volume 94.3 fl (80-100); Mean Platelet Volume 9.5 fl (7.4-10.4); Monocytes Absolute Auto 0.7 K/mm3 (0.1-0.6); Monocytes Percent Auto 9.9 % (2.6-8.5); Neutrophils Absolute Auto 3.8 K/mm3 (1.3-6.7); Neutrophils Percent Auto 52.5 % (45.5-73.1); Platelet Count Result 235 k/mm3 (150-375); Red Blood Count 4.58 M/mm3 (4.6-6.20); Red Cell Distribution Width 14.1 % (11.5-14.5); White Blood Count 7.3 K/mm3 (4.5-10.0)
[2024-04-14 13:09] LABS: Troponin I < 0.012 ng/mL (0.000-0.034)
--- NOTE | 2024-04-14 15:00 | ED.GENADULT ---
HPI - General Adult General Chief complaint: Chest Pain Stated complaint: chest pain Time Seen by Provider: 04/14/24 14:38 Source: patient and family Mode of arrival: ambulatory Limitations: dementia History of Present Illness HPI narrative: This is a 68 year old male that presents to the ER for feeling generally unwell. He reported to triage that he had pain in his heart. Reporting to me that his main complaint is low abdominal pain. He also reported to his that he had a headache. Denies fever, cough, shortness of breath, vomiting, diarrhea, or dysuria. Related Data Home Medications Medication Instructions Recorded Confirmed amlodipine 2.5 mg tablet 2.5 mg PO DAILY 08/28/20 10/31/22 aspirin 81 mg tablet 81 mg PO DAILY 08/28/20 10/31/22 atorvastatin 80 mg tablet 80 mg PO HS 08/28/20 10/31/22 furosemide 20 mg tablet 20 mg PO DAILY 08/28/20 10/31/22 metoprolol succinate 50 mg 50 mg PO DAILY 08/28/20 10/31/22 tablet,extended release 24 hr potassium chloride 10 mEq 10 meq PO DAILY 08/28/20 10/31/22 tablet,extended release Allergies Allergy/AdvReac Type Severity Reaction Status Date / Time No Known Allergies Allergy Verified 01/03/23 09:56 Review of Systems Review of Systems: ROS unobtainable: Yes unobtainable due to medical condition PMFSH Past Medical History Medical History CAD (coronary artery disease) Hyperglycemia Hyperlipidemia Hypertension Nephrolithiasis With lithotripsy Surgical History Surgical History H/O rhinoplasty History of lithotripsy Hx of umbilical hernia repair repair of incarcerated umbilical hernia with mesh 09/18/22 S/P CABG x 5 Family History Family History Mother Heart disease Aspiration pneumonia Ovarian cancer Hypertension Father Heart disease Social History Social History Social History: The patient lives with his and has 4 children. His is a durable power litigation attorney for healthcare. The patient said that when he was the young man he was a hip be in use various drugs but not since then. He used to smoke cigarettes before he his . 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 No alcohol marijuana or illicit drugs at this time. But he did experiment with drugs as a young man. He desires to be a full code. Smoking packs per day: 1 Smoking cigarettes per day: 20.0 Years smoked: 9 Smoking pack-years: 9.00 Smoking status: Former smoker Tobacco type: cigarettes Second hand tobacco smoke exposure: No Additional smoking assessment comments: QUIT 1977 Alcohol intake: never Substance use: never Substance use type: does not use Lack of Transportation: No Lack of Food: Sometimes True Current Housing: I Have Housing Concerned About Future Housing: No Difficulty Paying Gas/Electric Bills: No Difficulty Paying for Meds: No Currently Unemployed: No Education: High School Diploma/GED Difficulty w/ Childcare or Family Care: No Living arrangements: with family Occupation/Education: retired Gender identity (if verbalized by the patient): Male Spiritual care concerns: No Exam Narrative: GENERAL: Elderly, well-nourished, and in no acute distress. HEAD: Normocephalic, atraumatic. EYES: EOMI. ENT: Nares clear, no rhinorrhea or epistaxis. Mucous membranes moist. Oropharynx without tonsillar hypertrophy exudate or other lesions. NECK: Supple. No adenopathy or masses. No JVD CHEST: Clear to auscultation. No respiratory distress. No wheezes rales or rhonchi HEART: Regular rate and rhythm. No murmur heard. Normal peripheral pulses. ABDOMEN: Soft, nontender, nondistended, normal active bowel sounds. EXTREMITIES: Normal range of motion. No edema. SKIN: Warm, dry, no rash. NEURO: No focal defic
--- NOTE | 2024-04-14 15:13 | ECG_ITS ---
Test Date: 2024-04-14 15:13:45 Measurements Intervals [place] Rate: 49 P: 26 [place]: 165 QRS: -1 QRSD: 96 T: 19 QT: 451 QTc: 408 Interpretive Statements SINUS BRADYCARDIA Compared to ECG 04/14/2024 12:22:21 NO SIGNIFICANT CHANGES Electronically Signed On 04-15-2024 13:30:23 CDT by Gerald Bazan M.D.
[2024-04-14 15:20] LABS: D Dimer 1.16 ug/mL (<0.48)
[2024-04-14 15:30] LABS: Appearance Urine Clear (Clear); Bacteria Urine None Seen /hpf; Bilirubin Urine Negative (Negative); Blood Urine 2+ (Negative); Color Urine Yellow (Yellow); Glucose Urine UA Negative (Negative); Ketones Urine Negative (Negative); Leukocyte Esterase Ur Negative LEU/UL (Negative); Nitrate Urine Negative (Negative); Non Pathogenic Casts 0-2; Protein Urine Negative (Negative); Specific Grav Ur 1.012 (1.001-1.035); Squamous Epithelial Cell Urine None Seen /hpf (Few); Urobilinogen Urine 0.2 mg/dL (<2.0); WBC Urine 0-5 /hpf (0-3)
[2024-04-14 15:32] LABS: Add Urine Microscopic? YES
[2024-04-14 15:37] LABS: NT Pro B Type Natriuretic Pept 183 pg/mL (19.9-100)
[2024-04-14 15:40] LABS: Troponin I < 0.012 ng/mL (0.000-0.034)
[2024-04-14] MEDS: LACTATED RINGERS 500 ML 999 ML IV CONT (16:42)
[2024-04-14 17:19] LABS: Influenza A QL RT-PCR Negative (Negative); Influenza B QL RT-PCR Negative (Negative); RSV RNA, RT-PCR Negative (Negative); SARS-CoV-2 RNA PCR Negative (Negative)
[2024-04-14] MEDS: FAMOTIDINE 20 MG/2 ML VIAL IV PUSH (18:13)
== END 2024-04-14 18:19 | disposition home or self-care (01) ==
PROVIDERS: Emergency Medicine; Emergency Provider Physician Assistant; PCP Internal Medicine
DX: N20.1 Calculus of ureter (principal); K20.90 Esophagitis, unspecified without bleeding; S22.081A Stable burst fracture of T11-T12 vertebra, initial encounter for closed fracture; Z20.822 Contact with and (suspected) exposure to COVID-19; F03.90 Unspecified dementia, unspecified severity, without behavioral disturbance, psychotic disturbance, mood disturbance, and anxiety; I25.10 Atherosclerotic heart disease of native coronary artery without angina pectoris; I10 Essential (primary) hypertension; E78.5 Hyperlipidemia, unspecified; Z95.1 Presence of aortocoronary bypass graft; Z87.442 Personal history of urinary calculi; Z87.891 Personal history of nicotine dependence; Z79.899 Other long term (current) drug therapy; Z79.82 Long term (current) use of aspirin; R93.41 Abnormal radiologic findings on diagnostic imaging of renal pelvis, ureter, or bladder; I71.43 Infrarenal abdominal aortic aneurysm, without rupture; R94.31 Abnormal electrocardiogram [ECG] [EKG]; R00.1 Bradycardia, unspecified; X58.XXXA Exposure to other specified factors, initial encounter
CPT/HCPCS: 36415; 71046; 71275; 74018; 74177; 80053; 81001; 83690; 83880; 84484; 85025; 85380; 85610; 85730; 87086; 87637; 93005; 96361; 96374; 99284; J7120; Q9967

== ENCOUNTER 2024-04-23 00:13 | Day surgery (SDC) | payer MEDICARE, SELFPAY ==
--- NOTE | 2024-04-19 15:54 | PC.NURSE ---
Report to the Outpatient Waiting Room, entrance under the green pavilion located off [facility], at time __6:30 AM on date __04/23/24 . Planned Procedure Time: __8:30 AM . Time changes happen often and if your time is changed the preop area will call you the afternoon before. - You and your visitor will be asked to self-screen and do not enter if you have any COVID symptoms. - A mask is optional within the hospital at this time. Patients may have clear liquids (water, carbonated beverages, clear teas, apple juice) until 3 hours prior to surgery( 5:30 AM) with a maximum of 20 ounces. - No food from midnight until time of surgery - Infants may have breast milk until 4 hours before surgery, infant formula 6 hours prior to surgery. - Children will be allowed to drink immediately following surgery. If applicable, please bring a bottle or sippy cup to assist with drinking. Juice, water, soda, and popsicles are readily available. For infants on formula, please bring formula the day of surgery. Pacifiers are allowed. Take the following medications with a SIP of water the morning of surgery: _DONEPEZIL,ISOSORBIDE,MEMANTINE,METOPROLOL DO NOT STOP ANY OF YOUR OTHER PRESCRIPTION MEDICATIONS PRIOR TO SURGERY ?EXCEPT THE FOLLOWING Medications to discontinue per physician WIFE STATES HOLD ASPIRIN 7 DAYS PRE OP PER DR ESTRADA,LAST DOSE 04/16/24 Please no make-up, nail uzbek, hairspray, perfume, deodorant, or body powder the day of surgery. No jewelry (including any body piercings) or valuables the day of surgery, leave them at home. Please take a shower or bath the night before, or the morning of, surgery with an antibacterial soap. Wear comfortable, loose fitting clothing. Children are encouraged to wear pajamas. - Jewelry must be removed prior to entering the operating room. Rings and piercings that are not removed may be cut off. - The hospital will not accept responsibility for valuables. - Please leave all valuables, including medications, at home the day of surgery. If you are going home after surgery, a licensed cdl team truck driver must drive you home. - NO public transportation without another adult if you receive anesthesia. - We recommend that an adult stay with you for 24 hours following discharge. - We also recommend that you do not drive, make important decision, drink alcoholic beverages, or take any drugs that were not prescribed by your health care provider for at least 24 hours after your discharge time. For Pediatric surgeries, we recommend two adults accompany the child home. Follow any additional instructions given to you from your surgeon. If you or anyone in your household have experienced Covid symptoms in the past week, please notify your surgeon or the nurse liaison at the phone number below for possible testing. Telephone instructions given to __WIFE YANNI and asked if any additional questions and then verbalized understanding. Patient advised to call surgeon office or pre surgery nurse liaison [phone] if any additional questions.
[2024-04-19 16:06] VITALS: BMI 24.4
[2024-04-23] VITALS (7 sets, daily range): BP systolic 128–143; BP diastolic 68–75; PULSE 47–68; RESP 10–20; TEMP 36.1–36.2; O2SAT 97–100
--- NOTE | ~2024-04-23 | CT_ITS ---
EXAMINATION: CT abdomen pelvis wo con DATE: 04/23/2024 07:46 INDICATION: Right ureteral stone. TECHNIQUE: Computed tomography (CT) of the abdomen and pelvis was performed without intravenous contr ast. Automated exposure control and iterative reconstruction technique were employed. The dose-length product was 235.79 mGy-cm. COMPARISON: CT abdomen and pelvis 04/14/2024 FINDINGS: The visualized portions of lung bases demonstrate mild atelectasis. No pleural effusion. Th e heart size is normal. There are coronary artery calcifications. No pericardial effusion. There is a small sliding hiatal hernia. The liver is normal. There is a gallstone in the gallbladder, which is normal in size. Calcifications in the spleen are consistent with old granulomatous disease. The pancr eas and adrenal glands are normal. There is cortical thinning of the kidneys. There are 3 stones in r ight kidney measuring up to 4 mm. There are 3 stones in left kidney measuring up to 5 mm. There is a 4 mm stone in proximal right ureter. The prostate is mildly enlarged. There are no dilated loops of b owel. The appendix is normal. There is calcified atherosclerosis of the aorta and many of the other a rteries. There are no pathologically enlarged lymph nodes. There is no free intraperitoneal fluid. Th ere is a 3.3 cm fusiform infrarenal aortic aneurysm. There is mild lumbar spondylosis. There is a sta ble burst fracture of T12, likely subacute. IMPRESSION: 1. 4 mm stone in proximal right ureter. No hydronephrosis. 2. Bilateral nonobstructing kidney stones. 3. Stable T12 burst fracture, likely subacute. 4. Stable 3.3 cm fusiform aneurysm of infrarenal aorta. Reviewed, dictated and finalized at location A.
--- NOTE | ~2024-04-23 | XR_ITS ---
Supine and upright views of the abdomen Clinical history: Lithotripsy COMPARISON: 04/14/2024 Findings: Bowel gas pattern is nonspecific. No evidence for obstruction or free air. Small left renal stones are present, measuring up to 3 mm. 2.6 cm calcified right upper quadrant structure probably r epresents a gallstone. No definite right renal stones. Osseous structures are intact. Impression: Left nephrolithiasis, as above. 2.6 cm probable calcified gallstone. Reviewed, dictated and finalized at location . Impression: Left nephrolithiasis, as above. 2.6 cm probable calcified gallstone.
--- NOTE | 2024-04-23 06:36 | WPDHPUPDATE1 ---
History and Physical Update Update Date/Time: 04/23/24 06:36 History and Physical has been reviewed, including an updated exam of the patient. There are NO changes in the patient's condition. Risks, benefits, and alternatives have been discussed and questions answered. Patient agrees to proceed with procedure.
[2024-04-23] MEDS: LACTATED RINGERS 1,000 ML 30 ML IV CONT (07:15)
[2024-04-23 07:34] LABS: Glucose Point of Care 134 mg/dl (65-105)
--- NOTE | 2024-04-23 07:34 | WPDANESEPPF ---
Anes - Initial Pre Proc Eval Procedure: Operation Date: 04/23/24 08:30 Proposed Procedures p Right Extracorporeal Shock Wave Lithotripsy - Juve Velez MD Date/Time: 04/23/24 07:34 Surgeon: Juve Velez MD Pre Op Diagnosis: Rt Ureteral Stone Patient Data Age: 68 Gender: M Height: 1.83 m Weight: 79 kg Last Vital Signs Temp 36.2 C L 04/23/24 07:26 Pulse 60 04/23/24 07:26 Resp 16 04/23/24 07:26 BP 143/72 H 04/23/24 07:26 Pulse Ox 97 04/23/24 07:26 O2 Del Method Room Air 04/23/24 07:26 Allergies Allergy/AdvReac Type Severity Reaction Status Date / Time No Known Allergies Allergy Verified 04/23/24 06:38 Home Medications Medication Instructions Recorded Confirmed Type aspirin 81 mg tablet 81 mg PO DAILY 08/28/20 04/23/24 History atorvastatin 80 mg tablet 80 mg PO HS 08/28/20 04/23/24 History furosemide 20 mg tablet 20 mg PO DAILY 08/28/20 04/23/24 History metoprolol succinate 50 mg 50 mg PO DAILY 08/28/20 04/23/24 History tablet,extended release 24 hr potassium chloride 10 mEq 10 meq PO DAILY 08/28/20 04/23/24 History tablet,extended release isosorbide mononitrate 30 mg 30 mg PO DAILY #90 tabs 08/22/21 04/23/24 Rx tablet,extended release 24 hr nitroglycerin 0.4 mg sublingual 0.4 mg sublingual Q5-15M PRN chest 12/12/21 04/19/24 Rx tablet pain #30 tabs tramadol 50 mg tablet 50 mg PO Q6H PRN pain #14 tabs 04/14/24 04/19/24 Rx acetaminophen 325 mg tablet 500 mg PO PRN PRN Pain 04/19/24 04/23/24 History (Tylenol) donepezil 10 mg tablet 10 mg PO DAILY 04/19/24 04/23/24 History finasteride 5 mg tablet 5 mg PO DAILY 04/19/24 04/23/24 History memantine 10 mg tablet 10 mg PO BID 04/19/24 04/23/24 History tamsulosin 0.4 mg capsule 0.4 mg PO DAILY 04/19/24 04/23/24 History Laboratory Tests 04/23/24 07:32 POC Capillary Glucose 134 H mg/dl (65-105) Patient hx anesthesia problems: none Family hx anesthesia problems: none Results Review: All pre-operative results and documents have been reviewed as part of the pre-operative evaluation. [facility] Past Medical History Medical History CAD (coronary artery disease) Hyperglycemia Hyperlipidemia Hypertension Nephrolithiasis With lithotripsy Surgical History Surgical History H/O rhinoplasty History of lithotripsy Hx of umbilical hernia repair repair of incarcerated umbilical hernia with mesh 09/18/22 S/P CABG x 5 Family History Family History Mother Heart disease Aspiration pneumonia Ovarian cancer Hypertension Father Heart disease Social History Social History Social History: The patient lives with his and has 4 children. His is a durable power collections attorney for healthcare. The patient said that when he was the young man he was a hip be in use various drugs but not since then. He used to smoke cigarettes before he his . 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 No alcohol marijuana or illicit drugs at this time. But he did experiment with drugs as a young man. He desires to be a full code. Smoking packs per day: 1 Smoking cigarettes per day: 20.0 Years smoked: 9 Smoking pack-years: 9.00 Smoking status: Former smoker Tobacco type: cigarettes Second hand tobacco smoke exposure: No Smoking end date: 10/20/77 Additional smoking assessment comments: QUIT 1977 Alcohol intake: never Substance use: never Substance use type: does not use Lack of Transportation: No Lack of Food: Sometimes True Current Housing: I Have Housing Concerned About Future Housing: No Difficulty Paying Gas/Electric Bills: No Difficulty Paying for Meds: No Currently Unemployed: No Education: High School Diploma/GED Difficulty w/ Childcare or Family
--- NOTE | 2024-04-23 07:50 | SUR.PREOP ---
0700- Pre Dr. Velez no need to repeat PT/INR. 0735- Stat CT ordered
[2024-04-23] MEDS: ceFAZolin 2 GM/D5W 50 ML 2 GM/50 ML BAG IVPB (08:21)
--- NOTE | 2024-04-23 08:34 | W.PM.PROC2 ---
Procedure Note - Detailed Date of Procedure 04/23/24 Pre-op Diagnosis Rt Ureteral Stone Post-op Diagnosis Same Procedure Performed Right ESWL Surgeon Juve Velez MD Anesthesia General Description of Procedure The patient was brought to the operative suite where he was placed in the supine position on the Dornier lithotripsy table. The focal point of the lithotripter was placed at a 6mm right mid-ureteral calculus. A total of 3000 shocks were delivered at a power setting of 5. There appeared to be good fragmentation of the stone. The patient tolerated the procedure well and was taken to the recovery room in good condition. Drains No Packing No Pathology None sent Complications No immediate complications
[2024-04-23 09:24] LABS: Glucose Point of Care 126 mg/dl (65-105)
== END 2024-04-23 10:45 | disposition home or self-care (01) ==
PROVIDERS: PCP Internal Medicine; Visit Provider Urology
PROC: (CPT 50590; principal; 2024-04-23 08:30)
DX: N20.1 Calculus of ureter (principal); I10 Essential (primary) hypertension; Z83.3 Family history of diabetes mellitus
CPT/HCPCS: 50590; 74018; 74176; 82948; J0690; J1100; J2405; J2704; J3010; J7120

== ENCOUNTER 2024-05-05 09:01 | Outpatient (CLI) | payer MEDICARE, SELFPAY ==
--- NOTE | ~2024-05-05 | XR_ITS ---
XR abdomen/kub 1V Ordering provider: Juve Velez MD History: . R URETERAL STONE FU . Comparison: April 23, 2024 FINDINGS: BOWEL: Nonobstructive bowel gas pattern. ORGANOMEGALY: None. SIGNIFICANT PATHOLOGIC CALCIFICATIONS: Calcifications seen in the left renal area unchanged. OTHER: Cholelithiasis. No free air is seen under the diaphragm. IMPRESSION: NO ACUTE ABDOMINAL FINDINGS. Left kidney stones unchanged. Highly suggestive cholelithiasis. Reviewed, dictated and finalized at location A.
== END 2024-05-05 09:02 | disposition home or self-care (01) ==
LOC: ANHIMG 09:06
PROVIDERS: PCP Internal Medicine; Visit Provider Urology
DX: N20.1 Calculus of ureter (principal)
CPT/HCPCS: 74018

== ENCOUNTER 2024-08-06 15:57 | Emergency (ER) | payer MEDICARE, MEDICAID, SELFPAY ==
--- NOTE | ~2024-08-06 | CT_ITS ---
CTA chest PE protocol Ordering provider: Nargis Carrington MD History: 69 years Male with . SOB; borderline hypoxia; elev dimer . Comparison: None. Technique: CT angiogram chest was performed following timed intravenous injection of contrast. Thin s lice axial images and reformatted coronal images were obtained. Three dimensional reformatted images of the chest were also obtained using a [employer] workstation. . Automated exposure control and iterati ve reconstruction technique were employed. The dose-length product was 438.08 mGy-cm. 100 mL Omnipaqu e 350 was given IV. Findings: PULMONARY ARTERIES: No pulmonary embolus. VISUALIZED THORACIC INLET: Normal. MEDIASTINUM: Postoperative changes in the mediastinum. Aorta/coronary arteries: Ascending aorta measu res 3.7 cm. Mild atheromatous disease. Heart/other: The heart is not enlarged. Lymph nodes: No mediastinal or hilar adenopathy. LUNGS: No pulmonary nodules or masses. No infiltrates or effusions. No pneumothorax. Subsegmental atelectasi s bilaterally in the lower lobes. VISUALIZED UPPER ABDOMEN: Cholelithiasis. Small sliding hiatus hernia. Lobulated outline of the kidne ys. Otherwise, the visualized upper abdomen is normal. MUSCULOSKELETAL: Soft tissues: The superficial soft tissues are normal. Bones: Compression fracture most likely acute disease seen at the level of T12. Retropulsed fragment is seen MRI evaluation advised. Age appropriate degenerative changes of the spine. IMPRESSION: 1. No pulmonary embolism. 2. No acute cardiopulmonary pathology. 3. Cholelithiasis. 4. Sliding hiatus hernia. 5. Compression fracture in T12 most likely acute. MRI evaluation is advised Reviewed, dictated and finalized at location A.
--- NOTE | ~2024-08-06 | XR_ITS ---
EXAMINATION: XR chest 2V DATE: 08/06/2024 16:18 INDICATION: Chest pain TECHNIQUE: frontal and lateral views of the chest were obtained. COMPARISON: Chest radiograph and CT dated 04/14/2024 FINDINGS: Opacities including linear opacities at the bilateral lung bases and favor atelectasis over pneumonia . No pulmonary edema, pleural effusion or pneumothorax. The cardiomediastinal silhouette is normal. M edian sternotomy wires and mediastinal surgical clips are seen, likely from prior coronary artery byp ass grafting. 2.5 cm rim calcified gallstone in the upper abdomen. Chronic T12 burst fracture with 40 % anterior vertebral body height loss. IMPRESSION: 1. Bibasilar opacities and favor atelectasis over pneumonia. 2. Cholelithiasis. Reviewed, dictated and finalized at location A.
--- NOTE | 2024-08-06 15:59 | ECG_ITS ---
Test Date: 2024-08-06 16:06:29 Measurements Intervals Celestine Rate: 80 P: 18 VT: 158 QRS: -23 QRSD: 102 T: 46 QT: 346 QTc: 401 Interpretive Statements SINUS RHYTHM WITH MARKED SINUS ARRHYTHMIA BORDERLINE LEFT AXIS DEVIATION [QRS AXIS < -20] MODERATE VOLTAGE CRITERIA FOR LVH, CONSIDER NORMAL VARIANT [MEETS CRITERIA IN ONE OF: R(aVL), S(V1), R(V5), R(V5/V6)+S(V1)] NONSPECIFIC T-WAVE ABNORMALITY ABNORMAL ECG WARNING: DATA QUALITY MAY AFFECT INTERPRETATION Compared to ECG 04/14/2024 15:13:45 HEART RATE INCREASED, NO OTHER SIGNIFICANT CHANGE Electronically Signed On 08-07-2024 09:40:58 CDT by Wiliam Mayers M.D.
[2024-08-06 16:04] VITALS: BP 137/82; PULSE 79; RESP 16; TEMP 36.6; O2SAT 96
[2024-08-06 16:15] VITALS: RESP 20; O2SAT 96
[2024-08-06 16:21] LABS: Basophils Percent Auto 0.3 % (0.2-1.2); Eosinophils Absolute Auto 0.2 K/mm3 (0-0.3); Eosinophils Percent Auto 2.3 % (0-4.4); Hematocrit 42.6 % (42.0-52.0); Hemoglobin 14.7 g/dL (14.0-18.0); Immature Granulocyte Absolute 0.03 K/mm3 (0.00-0.031); Immature Granulocyte Percent A 0.4 % (0-0.5); Lymphocytes Absolute Auto 2.19 K/mm3 (0.9-3.2); Lymphocytes Percent Auto 31.1 % (18.3-44.2); Mean Corpuscular HGB Conc 34.5 g/dl (32-36); Mean Corpuscular Hemoglobin 32.1 pg (26-34); Mean Platelet Volume 9.1 fl (7.4-10.4); Monocytes Absolute Auto 0.7 K/mm3 (0.1-0.6); Monocytes Percent Auto 9.6 % (2.6-8.5); Neutrophils Percent Auto 56.3 % (45.5-73.1); Platelet Count Result 268 k/mm3 (150-375); Red Blood Count 4.58 M/mm3 (4.6-6.20); White Blood Count 7.1 K/mm3 (4.5-10.0)
[2024-08-06] MEDS: ASPIRIN 81 MG CHEWABLE TABLET 324 MG PO (16:32)
[2024-08-06 16:33] LABS: INR 1.1; Prothrombin Time 14.7 Seconds (11.1-14.7)
[2024-08-06 16:34] LABS: Alanine Aminotransferase 28 U/L (6-50); Alkaline Phosphatase 87 U/L (38-126); Anion Gap 7 mmol/L (4-12); Aspartate Amino Transferase 33 U/L (17-59); Bilirubin,Total 1.1 mg/dL (0.2-1.3); Blood Urea Nitrogen 16 mg/dL (9-20); Carbon Dioxide 26 mmol/L (22-30); Chloride 105 mmol/L (98-107); Estimated CRCL calculation 66 ml/min; Estimated Glomerular Filt Rate > 60; Glucose 208 mg/dL (65-110); Lipase 106 U/L (23-300); Partial Thromboplastin Time 34.2 Seconds (22.3-36.8); Potassium 3.9 mmol/L (3.4-5.0); Sodium 138 mmol/L (137-145)
[2024-08-06 16:46] LABS: Troponin I < 0.012 ng/mL (0.000-0.034)
--- NOTE | 2024-08-06 17:03 | ED.CHESTPAIN ---
HPI - Chest Pain General Chief Complaint: Chest Pain Stated Complaint: chest pain Time Seen by Provider: 08/06/24 16:38 Source: patient and family Mode of arrival: ambulatory Limitations: dementia History of Present Illness HPI narrative: Patient presents with report of shortness breath. He has dementia for which he takes amantadine and this limits his ability to provide history. he states he was complaining of shortness of breath and he took a big gasp. No fevers but she has stated she has been shaky. He has an extensive cardiac history after he had chest pain in 2019 and was found to have multiple blockages requiring quintuple bypass performed at [facility]. He has had a dry cough and clear rhinorrhea. 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 He saw her in May and is not scheduled to see her again into May 2025. He is on aspirin 81 mg daily. He had previously been on Plavix but that was discontinued. Unknown if he has hypertension as a has been variable. He does have a history of hyperlipidemia. Nonsmoker. He has been diagnosed with diabetes mellitus but is not on medications including not on insulin or oral agents but rather it is controlled with diet per . His dad and brother had extensive cardiac issues including his brother Joss required stents before the age of 65. No history of TIA or CVA. Subjective unilateral edema per . No recent immobilization or surgeries. No prior DVT or PE. No hemoptysis or malignancy. Related Data Home Medications Medication Instructions Recorded Confirmed aspirin 81 mg tablet 81 mg PO DAILY 08/28/20 04/23/24 atorvastatin 80 mg tablet 80 mg PO HS 08/28/20 04/23/24 furosemide 20 mg tablet 20 mg PO DAILY 08/28/20 04/23/24 metoprolol succinate 50 mg 50 mg PO DAILY 08/28/20 04/23/24 tablet,extended release 24 hr potassium chloride 10 mEq 10 meq PO DAILY 08/28/20 04/23/24 tablet,extended release acetaminophen 325 mg tablet 500 mg PO PRN PRN Pain 04/19/24 04/23/24 (Tylenol) donepezil 10 mg tablet 10 mg PO DAILY 04/19/24 04/23/24 finasteride 5 mg tablet 5 mg PO DAILY 04/19/24 04/23/24 memantine 10 mg tablet 10 mg PO BID 04/19/24 04/23/24 tamsulosin 0.4 mg capsule 0.4 mg PO DAILY 04/19/24 04/23/24 Allergies Allergy/AdvReac Type Severity Reaction Status Date / Time No Known Allergies Allergy Verified 04/23/24 06:38 [facility] Past Medical History Medical History CAD (coronary artery disease) Dementia Hyperglycemia Hyperlipidemia Hypertension Nephrolithiasis With lithotripsy Surgical History Surgical History H/O rhinoplasty History of lithotripsy Hx of umbilical hernia repair repair of incarcerated umbilical hernia with mesh 09/18/22 S/P CABG x 5 Family History Family History Mother Heart disease Aspiration pneumonia Ovarian cancer Hypertension Father Heart disease Social History Social History Social History: The patient lives with his and has 4 children. His is a durable power privacy attorney for healthcare. The patient said that when he was the young man he was a hip be in use various drugs but not since then. He used to smoke cigarettes before he his . 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 No alcohol marijuana or illicit drugs at this time. But he did experiment with drugs as a young man. He desires to be a full code. Smoking packs per day: 1 Smoking cigarettes per day: 20.0 Years smoked: 9 Smoking pack-years: 9.00 Smoking status: Former smoker Tobacco type: cigarettes Second hand tobacco smoke exposure: No Smoking end date: 10/20/77 Additional smoking assessment comments: QUIT 1977 Alcohol intake: never Substance use: never Substance use type: does not use Lack of [place]
[2024-08-06 17:54] LABS: D Dimer 1.64 ug/mL (<0.48)
[2024-08-06 18:00] VITALS: BP 134/81; PULSE 72; RESP 14; O2SAT 95
[2024-08-06 18:10] LABS: Influenza A QL RT-PCR Negative (Negative); Influenza B QL RT-PCR Negative (Negative); RSV RNA, RT-PCR Negative (Negative); SARS-CoV-2 RNA PCR Negative (Negative)
[2024-08-06] MEDS: PANTOPRAZOLE 40 MG TABLET PO (19:43)
[2024-08-06 20:10] VITALS: BP 126/83; PULSE 72; RESP 14; O2SAT 97
== END 2024-08-06 20:12 | disposition home or self-care (01) ==
PROVIDERS: Emergency Medicine; Emergency Provider Student in an Organized Health Care Education/Training Program; PCP Internal Medicine
DX: R06.02 Shortness of breath (principal); E11.65 Type 2 diabetes mellitus with hyperglycemia; K44.9 Diaphragmatic hernia without obstruction or gangrene; S22.080D Wedge compression fracture of T11-T12 vertebra, subsequent encounter for fracture with routine healing; Z20.822 Contact with and (suspected) exposure to COVID-19; F03.90 Unspecified dementia, unspecified severity, without behavioral disturbance, psychotic disturbance, mood disturbance, and anxiety; I25.10 Atherosclerotic heart disease of native coronary artery without angina pectoris; E78.5 Hyperlipidemia, unspecified; I10 Essential (primary) hypertension; Z87.442 Personal history of urinary calculi; Z95.1 Presence of aortocoronary bypass graft; Z87.891 Personal history of nicotine dependence; Z79.82 Long term (current) use of aspirin; Z79.899 Other long term (current) drug therapy; K80.20 Calculus of gallbladder without cholecystitis without obstruction; R94.31 Abnormal electrocardiogram [ECG] [EKG]; W19.XXXD Unspecified fall, subsequent encounter
CPT/HCPCS: 36415; 71046; 71275; 80053; 83690; 84484; 85025; 85380; 85610; 85730; 87637; 93005; 99284; A9270; Q9967